=== PATIENT | female | born 1960 | race Caucasian/White ===

== ENCOUNTER → 2018-12-26 | Outpatient (CLI) | payer OTHER, SELFPAY ==
--- NOTE | 2018-12-26 07:14 | BI_ITS ---
We are attempting to reach an attending provider to discuss findings. An addendum with communication details will be sent when the communication is complete. MAMMOGRAPHY - BILATERAL SCREENING REASON FOR EXAM: Female, 58 years old. Routine annual screening examination. PERTINENT HISTORY: Non-contributory. TECHNIQUE: Digital bilateral breast jonah (3D mammographic acquisition) in the CC and MLO projections. 2-D mediolateral oblique (MLO) and craniocaudad (CC) views of both breasts were obtained. CAD: Full Field Digital Mammography with Computer Added Detection was performed. COMPARISON: Comparison is made with prior study dated July 31, 2017 and February 17, 2016. FINDINGS: Breast Composition: There are scattered areas of fibroglandular density. There are no dominant masses or suspicious calcifications. No other significant abnormalities are identified. There has been no significant change since the prior study. BI/SCREENING MAMM (CAD), BILAT IMPRESSION: Stable bilateral screening mammogram. Yearly follow-up mammogram recommended. (A) ASSESSMENT CATEGORY: BIRADS Category 1: Negative. A letter regarding these results will be sent to the patient by the facility within 30 days. Approximately 10% of breast cancers are not detected by mammography. A normal mammogram should not delay biopsy of a clinically suspicious abnormality. [id number] Pending Final Proof Editing
== END | disposition home or self-care (01) ==
PROVIDERS: Referring Provider Family Medicine; Visit Provider Family Medicine
DX: Z12.31 Encounter for screening mammogram for malignant neoplasm of breast (principal)
CPT/HCPCS: 77063; 77067

== ENCOUNTER → 2019-08-28 08:38 | Outpatient (CLI) | payer OTHER, SELFPAY ==
[2019-08-28 10:07] LABS: ALB/GLOB Ratio 0.9 RATIO (0.9-2.4); AST(SGOT) 19 U/L (15-37); Alanine Aminotransfer ALT/SGPT 34 U/L (13-56); Albumin, Serum 3.5 g/dL (3.2-5.0); Alkaline Phosphatase 136 U/L (45-117); Anion Gap 5 (5-15); BUN 13 mg/dL (7-18); BUN/Creat Ratio 15.5 RATIO (10-20); Chloride 107 mmol/L (98-107); Cholesterol 148 mg/dL (200); Creatinine, Serum 0.84 mg/dL (0.55-1.02); EST Glomerular Filtration Rate 74 mL/min (>60); Est Glom Filt Rate - Afr Amer 89 mL/min (>60); Globulin 3.7 g/dL (2.2-4.2); Glucose 89 mg/dL (74-106); High Density Lipoprotein 50 mg/dL; Potassium 3.9 mmol/L (3.5-5.1); Protein, Total 7.2 g/dL (6.4-8.2); Sodium Level 140 mmol/L (136-145); Triglycerides 121 mg/dL; Very Low Density Lipoprotein 24 mg/dL (5-40)
== END ==
PROVIDERS: PCP Family Medicine; Referring Provider Family Medicine; Visit Provider Family Medicine
DX: E78.00 Pure hypercholesterolemia, unspecified (principal)
CPT/HCPCS: 36415; 80053; 80061

== ENCOUNTER → 2020-01-14 17:33 | Outpatient (CLI) | payer OTHER, SELFPAY ==
[2020-01-17 15:54] LABS: HPV Reflexed? NOT INDICATED
== END ==
PROVIDERS: PCP Family Medicine; Visit Provider Nurse Practitioner Adult Health
DX: Z00.00 Encounter for general adult medical examination without abnormal findings (principal)
CPT/HCPCS: 88175; G0145

== ENCOUNTER → 2020-01-28 07:54 | Outpatient (CLI) | payer OTHER, SELFPAY ==
--- NOTE | 2020-01-28 07:57 | BI_ITS ---
MAMMOGRAPHY - BILATERAL SCREENING REASON FOR EXAM: Female, 59 years old. Routine annual screening examination. PERTINENT HISTORY: Non-contributory. TECHNIQUE: Digital bilateral breast corey (3D mammographic acquisition) in the CC and MLO projections. 2-D mediolateral oblique (MLO) and craniocaudad (CC) views of both breasts were obtained. CAD: Full Field Digital Mammography with Computer Added Detection was performed. COMPARISON: Comparison is made with prior study dated December 26, 2018 and July 31, 2017. FINDINGS: Breast Composition: There are scattered areas of fibroglandular density. There are no dominant masses or suspicious calcifications. Stable benign-appearing bilateral axillary lymph nodes. No other significant abnormalities are identified. There has been no significant change since the prior study. BI/SCREEN MAMM (CAD) W/COREY BILAT IMPRESSION: Stable bilateral screening mammogram. Yearly follow-up mammogram recommended. (A) ASSESSMENT CATEGORY: BIRADS Category 2: Benign. A letter regarding these results will be sent to the patient by the facility within 30 days. Approximately 10% of breast cancers are not detected by mammography. A normal mammogram should not delay biopsy of a clinically suspicious abnormality. [id number] Electronically Signed: John Torres, at 8:53 EDT , Service support ,
== END ==
PROVIDERS: PCP Family Medicine; Referring Provider Nurse Practitioner Adult Health; Visit Provider Nurse Practitioner Adult Health
DX: Z12.31 Encounter for screening mammogram for malignant neoplasm of breast (principal)
CPT/HCPCS: 77063; 77067

== ENCOUNTER → 2020-02-09 11:55 | Outpatient (CLI) | payer OTHER, SELFPAY ==
[2020-02-09 16:08] LABS: Anion Gap 5 (5-15); BUN 13 mg/dL (7-18); BUN/Creat Ratio 15.5 RATIO (10-20); Chloride 108 mmol/L (98-107); Creatinine, Serum 0.84 mg/dL (0.55-1.02); EST Glomerular Filtration Rate 74 mL/min (>60); Est Glom Filt Rate - Afr Amer 89 mL/min (>60); Glucose 97 mg/dL (74-106); Potassium 4.3 mmol/L (3.5-5.1); Sodium Level 138 mmol/L (136-145)
== END ==
PROVIDERS: PCP Family Medicine; Visit Provider Family Medicine
DX: I10 Essential (primary) hypertension (principal)
CPT/HCPCS: 36415; 80048

== ENCOUNTER → 2020-09-29 08:44 | Outpatient (CLI) | payer OTHER, SELFPAY ==
[2020-09-29 11:07] LABS: ALB/GLOB Ratio 1.2 RATIO (0.9-2.4); AST(SGOT) 24 U/L (15-37); Alanine Aminotransfer ALT/SGPT 37 U/L (13-56); Albumin, Serum 3.6 g/dL (3.2-5.0); Alkaline Phosphatase 122 U/L (45-117); Anion Gap 6 (5-15); BUN 11 mg/dL (7-18); BUN/Creat Ratio 14.7 RATIO (10-20); CRP, High Sensitivity Cardiac 1.44 mg/L; Calcium,Total 8.9 mg/dL (8.5-10.1); Chloride 109 mmol/L (98-107); Cholesterol 177 mg/dL (200); Creatinine, Serum 0.75 mg/dL (0.55-1.02); EST Glomerular Filtration Rate 84 mL/min (>60); Est Glom Filt Rate - Afr Amer 102 mL/min (>60); Glucose 91 mg/dL (74-106); High Density Lipoprotein 57 mg/dL; Potassium 4.3 mmol/L (3.5-5.1); Protein, Total 6.6 g/dL (6.4-8.2); Sodium Level 142 mmol/L (136-145); Triglycerides 134 mg/dL; Very Low Density Lipoprotein 27 mg/dL (5-40)
== END ==
PROVIDERS: PCP Family Medicine; Referring Provider Family Medicine; Visit Provider Family Medicine
DX: E78.5 Hyperlipidemia, unspecified (principal); Z82.49 Family history of ischemic heart disease and other diseases of the circulatory system
CPT/HCPCS: 36415; 80053; 80061; 86141

== ENCOUNTER → 2021-04-05 07:08 | Outpatient (CLI) | payer OTHER, SELFPAY ==
--- NOTE | 2021-04-05 07:12 | BI_ITS ---
MAMMOGRAPHY - BILATERAL SCREENING REASON FOR EXAM: Female, 60 years old. Routine annual screening examination. PERTINENT HISTORY: Non-contributory. TECHNIQUE: Digital bilateral breast corey (3D mammographic acquisition) in the CC and MLO projections. 2-D mediolateral oblique (MLO) and craniocaudad (CC) views of both breasts were obtained. CAD: Full Field Digital Mammography with Computer Added Detection was performed. COMPARISON: Comparison is made with prior study dated 01/28/2020 and 12/26/2018. FINDINGS: Breast Composition: There are scattered areas of fibroglandular density. There are no dominant masses or suspicious calcifications. Stable small benign-appearing bilateral axillary lymph nodes. No other significant abnormalities are identified. There has been no significant change since the prior study. BI/SCRN MAMM (CAD)W/COREY BILAT IMPRESSION: Stable bilateral screening mammogram. Yearly follow-up mammogram recommended. (A) ASSESSMENT CATEGORY: BIRADS Category 2: Benign. A letter regarding these results will be sent to the patient by the facility within 30 days. Approximately 10% of breast cancers are not detected by mammography. A normal mammogram should not delay biopsy of a clinically suspicious abnormality. [id number] Electronically Signed: John Torres MD at 8:46 EDT , Service support ,
[2021-04-05 08:15] LABS: AST(SGOT) 21 U/L (15-37); Alanine Aminotransfer ALT/SGPT 33 U/L (13-56); Albumin, Serum 3.6 g/dL (3.2-5.0); Alkaline Phosphatase 145 U/L (45-117); Cholesterol 152 mg/dL (200); Globulin 3.6 g/dL (2.2-4.2); High Density Lipoprotein 52 mg/dL; Protein, Total 7.2 g/dL (6.4-8.2); Triglycerides 108 mg/dL; Very Low Density Lipoprotein 22 mg/dL (5-40)
== END ==
PROVIDERS: PCP Family Medicine; Referring Provider Family Medicine; Visit Provider Family Medicine
DX: Z12.31 Encounter for screening mammogram for malignant neoplasm of breast (principal); Z82.49 Family history of ischemic heart disease and other diseases of the circulatory system
CPT/HCPCS: 36415; 77063; 77067; 80061; 80076

== ENCOUNTER → 2021-08-11 14:55 | Outpatient (CLI) | payer OTHER, SELFPAY ==
[2021-08-11 17:41] LABS: Hematocrit 44.2 % (37-47); Hemoglobin 14.3 g/dL (12.0-15.0); Mean Corp Hgb Conc 32.4 g/dL (32-36); Mean Corpuscular Hgb 31.6 pg (27.0-32.0); Mean Corpuscular Volume 97.8 fL (81-99); Platelet Count 210 K/mm3 (150-450); RBC Distribution Width CV 13.9 % (11.6-14.6); RBC Distribution Width SD 50.8 fl (35.1-43.9); Red Blood Count 4.52 M/mm3 (4.2-5.4); White Blood Count 5.2 K/mm3 (4.4-11.0)
[2021-08-11 17:58] LABS: Anion Gap 10 (5-15); BUN 19 mg/dL (7-18); BUN/Creat Ratio 23.4 RATIO (10-20); Calcium,Total 9.1 mg/dL (8.5-10.1); Chloride 104 mmol/L (98-107); Creatinine, Serum 0.81 mg/dL (0.55-1.02); EST Glomerular Filtration Rate 76 mL/min (>60); Est Glom Filt Rate - Afr Amer 93 mL/min (>60); Glucose 89 mg/dL (74-106); Potassium 3.7 mmol/L (3.5-5.1); Sodium Level 140 mmol/L (136-145); Thyroid Stim Hormone (TSH) 1.74 uIU/mL (0.358-3.74)
== END ==
PROVIDERS: PCP Family Medicine; Visit Provider Nurse Practitioner Family
DX: R00.2 Palpitations (principal)
CPT/HCPCS: 36415; 80048; 84443; 85027

== ENCOUNTER → 2021-12-08 | Outpatient (CLI) | payer OTHER, SELFPAY ==
--- NOTE | 2021-12-08 11:07 | RAD_ITS ---
STUDY: X-RAY - LUMBAR SPINE REASON FOR EXAM: Female, 61 years old. BACK PAIN TECHNIQUE: view(s) of the lumbar spine were obtained. COMPARISON: None FINDINGS: Normal lumbar lordosis. There is scoliosis. There is disc degeneration at multiple levels There is a normal alignment of the vertebrae. Normal vertebral bodies and endplates. Normal disc space heights. The soft tissue structures are unremarkable. RAD/L/S Spine Min 4 Views IMPRESSION: There is scoliosis. There is disc degeneration. Electronically Signed: James Santiago MD at 1:04 EDT ,
== END | disposition home or self-care (01) ==
LOC: MTRAD 11:05
PROVIDERS: PCP Family Medicine; Referring Provider Family Medicine; Visit Provider Family Medicine
DX: M54.9 Dorsalgia, unspecified (principal)
CPT/HCPCS: 72110

== ENCOUNTER → 2021-12-10 | Outpatient (CLI) | payer OTHER, SELFPAY ==
[2021-12-10 09:03] LABS: AST(SGOT) 26 U/L (15-37); Alanine Aminotransfer ALT/SGPT 31 U/L (13-56); Albumin, Serum 3.4 g/dL (3.2-5.0); Alkaline Phosphatase 136 U/L (45-117); Anion Gap 3 (5-15); BUN 16 mg/dL (7-18); BUN/Creat Ratio 19.5 RATIO (10-20); Chloride 109 mmol/L (98-107); Cholesterol 154 mg/dL (200); Creatinine, Serum 0.82 mg/dL (0.55-1.02); EST Glomerular Filtration Rate 75 mL/min (>60); Est Glom Filt Rate - Afr Amer 91 mL/min (>60); Globulin 3.5 g/dL (2.2-4.2); Glucose 99 mg/dL (74-106); High Density Lipoprotein 52 mg/dL; Potassium 4.3 mmol/L (3.5-5.1); Protein, Total 6.9 g/dL (6.4-8.2); Sodium Level 139 mmol/L (136-145); Triglycerides 114 mg/dL; Very Low Density Lipoprotein 23 mg/dL (5-40)
== END | disposition home or self-care (01) ==
LOC: LAB 08:12
PROVIDERS: PCP Family Medicine; Visit Provider Family Medicine
DX: E78.5 Hyperlipidemia, unspecified (principal)
CPT/HCPCS: 36415; 80053; 80061

== ENCOUNTER → 2022-01-30 | Outpatient (CLI) | payer OTHER, SELFPAY ==
--- NOTE | 2022-01-30 07:17 | CT_ITS ---
INDICATION: R PRIMARY NODULE EXAMINATION: CT CHEST WITHOUT CONTRAST - CT Chest W/O Contrast Injection TECHNIQUE: Helically acquired images were obtained of the chest. A radiation dose optimization technique was used for this scan. IV Contrast dosage and agent: None. COMPARISON: None. FINDINGS: LUNGS, PLEURA AND LARGE AIRWAYS: No masses, consolidation, or edema. No pleural effusion or thickening. No pneumothorax. THYROID: No thyroid lesions. HEART AND PERICARDIUM: Heart size is normal. No pericardial effusion. CORONARY ARTERIES: Coronary artery calcification is seen. VESSELS: Thoracic aorta is not dilated. MEDIASTINUM AND PEBBLES: No mediastinal or hilar adenopathy. Esophagus is unremarkable. No hiatal hernia. UPPER ABDOMEN: No acute pathology. BONES: No suspicious lytic or blastic abnormality. CT/Chest without Contrast IMPRESSION: Negative CT chest without contrast. Electronically Signed: Vijay Jimenez MD at 8:51 EDT ,
== END | disposition home or self-care (01) ==
LOC: CT 07:16
PROVIDERS: PCP Family Medicine; Referring Provider Family Medicine; Visit Provider Family Medicine
DX: R91.1 Solitary pulmonary nodule (principal)
CPT/HCPCS: 71250

== ENCOUNTER → 2022-05-20 | Outpatient (CLI) | payer OTHER, SELFPAY ==
[2022-05-20 09:24] LABS: Anion Gap 3 (5-15); BUN 17 mg/dL (7-18); BUN/Creat Ratio 21.6 RATIO (10-20); Calcium,Total 8.9 mg/dL (8.5-10.1); Chloride 109 mmol/L (98-107); Cholesterol 161 mg/dL (200); Creatinine, Serum 0.79 mg/dL (0.55-1.02); EST Glomerular Filtration Rate 79 mL/min (>60); Est Glom Filt Rate - Afr Amer 96 mL/min (>60); Glucose 101 mg/dL (74-106); High Density Lipoprotein 49 mg/dL; Potassium 4.4 mmol/L (3.5-5.1); Sodium Level 141 mmol/L (136-145); Thyroid Stim Hormone (TSH) 2.63 uIU/mL (0.358-3.74); Triglycerides 136 mg/dL; Very Low Density Lipoprotein 27 mg/dL (5-40)
== END | disposition home or self-care (01) ==
LOC: LAB 08:14
PROVIDERS: PCP Family Medicine; Referring Provider Family Medicine; Visit Provider Family Medicine
DX: I10 Essential (primary) hypertension (principal); E78.00 Pure hypercholesterolemia, unspecified
CPT/HCPCS: 36415; 80048; 80061; 84443

== ENCOUNTER → 2022-05-22 | Outpatient (CLI) | payer OTHER, SELFPAY ==
--- NOTE | 2022-05-22 10:40 | BI_ITS ---
MAMMOGRAPHY - BILATERAL SCREENING REASON FOR EXAM: Female, 61 years old. Routine annual screening examination. PERTINENT HISTORY: Non-contributory. TECHNIQUE: Digital bilateral breast corey (3D mammographic acquisition) in the CC and MLO projections. 2-D mediolateral oblique (MLO) and craniocaudad (CC) views of both breasts were obtained. CAD: Full Field Digital Mammography with Computer Added Detection was performed. COMPARISON: Comparison is made with prior examination 04/05/2021 and 01/28/2020. FINDINGS: Breast Composition: There are scattered areas of fibroglandular density. There are no dominant masses or suspicious calcifications. Stable small benign-appearing bilateral axillary lymph nodes. No other significant abnormalities are identified. There has been no significant change since the prior study. BI/SCRN MAMM (CAD)W/COREY BILAT IMPRESSION: Stable bilateral screening mammogram. Yearly follow-up mammogram recommended. (A) ASSESSMENT CATEGORY: BIRADS Category 2: Benign. A letter regarding these results will be sent to the patient by the facility within 30 days. Approximately 10% of breast cancers are not detected by mammography. A normal mammogram should not delay biopsy of a clinically suspicious abnormality. [id number] Electronically Signed: John Torres MD at 12:34 EDT ,
== END | disposition home or self-care (01) ==
LOC: OPBI 10:37
PROVIDERS: PCP Family Medicine; Visit Provider Family Medicine
DX: Z12.31 Encounter for screening mammogram for malignant neoplasm of breast (principal)
CPT/HCPCS: 77063; 77067

== ENCOUNTER → 2023-01-06 | Outpatient (CLI) | payer OTHER, SELFPAY ==
[2023-01-06 08:52] LABS: ALB/GLOB Ratio 0.9 RATIO (0.9-2.4); AST(SGOT) 19 U/L (15-37); Alanine Aminotransfer ALT/SGPT 24 U/L (13-56); Albumin, Serum 3.3 g/dL (3.2-5.0); Alkaline Phosphatase 130 U/L (45-117); Anion Gap 2 (5-15); BUN 15 mg/dL (7-18); BUN/Creat Ratio 16.9 RATIO (10-20); Calcium,Total 9.2 mg/dL (8.5-10.1); Chloride 109 mmol/L (98-107); Cholesterol 149 mg/dL (200); Creatinine, Serum 0.88 mg/dL (0.55-1.02); EST Glomerular Filtration Rate 69 mL/min (>60); Est Glom Filt Rate - Afr Amer 83 mL/min (>60); Globulin 3.5 g/dL (2.2-4.2); Glucose 104 mg/dL (74-106); High Density Lipoprotein 50 mg/dL; Potassium 4.5 mmol/L (3.5-5.1); Protein, Total 6.8 g/dL (6.4-8.2); Sodium Level 141 mmol/L (136-145); Triglycerides 131 mg/dL; Very Low Density Lipoprotein 26 mg/dL (5-40)
== END | disposition home or self-care (01) ==
LOC: LAB 07:41
PROVIDERS: PCP Family Medicine; Referring Provider Family Medicine; Visit Provider Family Medicine
DX: E78.00 Pure hypercholesterolemia, unspecified (principal)
CPT/HCPCS: 36415; 80053; 80061

== ENCOUNTER → 2023-10-01 | Outpatient (CLI) | payer OTHER, SELFPAY ==
--- NOTE | 2023-10-01 07:57 | BI_ITS ---
MAMMOGRAPHY - BILATERAL SCREENING REASON FOR EXAM: Female, 63 years old. Routine annual screening examination. PERTINENT HISTORY: Non-contributory. TECHNIQUE: Digital bilateral breast corey (3D mammographic acquisition) in the CC and MLO projections. 2-D mediolateral oblique (MLO) and craniocaudad (CC) views of both breasts were obtained. CAD: Full Field Digital Mammography with Computer Added Detection was performed. COMPARISON: Comparison is made with prior study dated January 28, 2020 and April 05, 2021. FINDINGS: Breast Composition: There are scattered areas of fibroglandular density. There are no dominant masses or suspicious calcifications. Stable small benign appearing bilateral axillary nodes. No other significant abnormalities are identified. There has been no significant change since the prior study. BI/SCRN MAMM (CAD)W/COREY BILAT IMPRESSION: Stable bilateral screening mammogram. Yearly follow-up mammogram recommended. (A) ASSESSMENT CATEGORY: BIRADS Category 2: Benign. A letter regarding these results will be sent to the patient by the facility within 30 days. Approximately 10% of breast cancers are not detected by mammography. A normal mammogram should not delay biopsy of a clinically suspicious abnormality. [id number] Electronically Signed: John Torres MD at 8:40 EST ,
--- OUTSIDE RECORDS SUMMARY | 2023-10-01 08:14 | XMS RPT_ITS | CCD ---
Author Name Unknown Address [id number] [place] [address] Organization [facility] Care Team Providers Care Specimen Transporter Name Role Phone MCKENNA FU, DR SMITH Primary Care Physician ANA FU., DR. DESAI [facility] CMKENNA FU., DR. SMITH Primary Care Unav ailable Medications Current Medications Medication Drug Class(es) Dates Sig (Normalized) Sig (Original) lisinopril 10 mg oral tablet (1 source) Angiotensin Converting Enzyme Inhibitor Start: 03-03-2022 lisinopril 10 mg oral tablet Dose : 10 mg = 1 tab(s), Oral, qDay, 0 Refill(s) Start Date: 03/03/22 Status: Ordered Results Test Name Value Interpretation Reference Range Facil ity Vital Signs Date Time Vital Sign Value Performing Clinician [facility] 03-06-2022 10:49-0400 Body temperature 97.7 [degF] DR GISELLE PEREZ MD [facility] 03-06-2022 10:49-0400 Diastolic blood pressure 78 mm[Hg] DR GISELLE PEREZ MD [facility] 03-06-2022 10:49-0400 Heart rate 92 /min DR GISELLE PEREZ MD [facility] 03-06-2022 10:49-0400 Respiratory rate 17 /min DR GISELLE PEREZ MD [facility] 03-06-2022 10:49-0400 Systolic blood pressure 148 mm[Hg] DR GISELLE PEREZ MD [facility] 03-06-2022 10:45-0400 Diastolic Blood Pressure NBP [address] GISELLE PEREZ MD [facility] 03-06-2022 10:45-0400 Heart rate 91 /min DR GISELLE PEREZ MD [facility] 03-06-2022 10:45-0400 Respiratory rate 21 /min DR GISELLE PEREZ MD [facility] 03-06-2022 10:45-0400 Systolic Blood Pressure NBP [address] GISELLE PEREZ MD [facility] 03-06-2022 10:34-0400 Diastolic Blood Pressure NBP [address] GISELLE PEREZ MD [facility] 03-06-2022 10:34-0400 Heart rate 94 /min DR GISELLE PEREZ MD [facility] 03-06-2022 10:34-0400 Respiratory rate 18 /min DR GISELLE PEREZ MD [facility] 03-06-2022 10:34-0400 Systolic Blood Pressure NBP [address] GISELLE PEREZ MD [facility] 03-06-2022 10:30-0400 Heart rate 91 /min DR GISELLE PEREZ MD [facility] 03-06-2022 10:26-0400 Diastolic Blood Pressure NBP [address] GISELLE PEREZ MD [facility] 03-06-2022 10:26-0400 Systolic Blood Pressure NBP [address] GISELLE PEREZ MD [facility] 03-06-2022 10:15-0400 Body height [address] GISELLE PEREZ MD [facility] 03-06-2022 09:51-0400 Body height [address] GISELLE PEREZ MD [facility] 03-06-2022 09:51-0400 Body temperature 96.08 [degF] DR GISELLE PEREZ MD [facility] 03-06-2022 09:51-0400 Body weight 96.[address] GISELLE PEREZ MD [facility] 03-06-2022 09:51-0400 Diastolic blood pressure 77 mm[Hg] DR GISELLE PEREZ MD [facility] 03-06-2022 09:51-0400 Heart rate 96 /min DR GISELLE PEREZ MD [facility] 03-06-2022 09:51-0400 Systolic blood pressure 151 mm[Hg] DR GISELLE PEREZ MD [facility] Encounters Encounter Date Encounter Type Care Provider Facility Start: 03-06-2022 End: 03-06-[address] GISELLE PEREZ MD. Facility:[facility] Start: 03-06-2022 End: 03-06-[address] GISELLE PEREZ MD [facility] Procedures Date Procedure Procedure Detail Performing Clinician Start: 03-06-[address] GISELLE PEREZ MD Payers Date Payer Category Payer Unknown [id number] 2022 Unknown [id number] 1960 Unknown [id number] Social History Date Type Detail Facility Tobacco smoking status No Smoking Status Entered [facility] Sex Assigned At Female [facility] Functional Status Date Assessment Result Facility 03-06-2022 Functional Status Activity Statu s ADL Up to bathroom [facility] 03-06-2022 Functional Status Maintained [facility] Mental Status Date Assessment Result Facility 03-06-2022 Mental Status Oriented x 4 [facility] Evaluation + Plan note 03-06-2022 Note Date & Type Note Facility [facility] ADMISSION HISTORY AN D PHYSICIAL CHIEF COMPLAINT: HISTORY OF PRESENT ILLNESS: REVIEW OF SYSTEMS: ACTIVE PROBLEMS: (1) HTN (hypertension) ([id number]) MEDICATIONS: Active Inpt Meds: None Active PRN Meds: None One Time Meds: None Active IV Meds: Lactated Ringers Infusion 1,000 mL Start: 03/06/22 9:46:00 EDT, Rate: 50 mL/hr, 03/06/22 9:46:00 EDT ALLERGIES: (1) NKA FAMILY HISTORY: SOCIAL HISTORY: PHYSICAL EXAM: VITALS: [id number](kg) 03/06 10:05--107/59--------03/06 96.9 03/06 09:[id number] 24 Hr Tmax: 35.6 at 03/06 09:51 36 Hr Tmax: 35.6 at 03/06 09:51 Vital Signs are the last 5 in the past 48 hours. Weights display the last 5 within 7 days. Initial Wt: 03/06 96.9 kg 213 lb Current Wt: 03/06 96.9 kg 213 lb GENERAL: HEENT: CARDIOVASCULAR: RESPIRATORY: ABDOMEN: EXREMETIES: NEUROLOGICAL: PSYCHIATRIC: LABS: No 36hr Lab Data DIAGNOSTICS: IMPRESSION: PLAN: History and Physical Update I have examined the patient; reviewed the H&P and there are no changes to the H&P unless noted below. [facility] Hospital Discharge instructions 03-06-2022 Note Date & Type Note Facility 03-06-2022 Hospital Discharg e instructions Patient Education 03/06/2022 11:08:49 Diverticulosis Diverticulosis Diverticulosis is a condition that develops when small pouches (diverticula) form in the wall of the large intestine (colon). The colon is where water is absorbed and stool is formed. The pouches form when the inside layer of the colon pushes through weak spots in the outer layers of the colon. You may have a few pouches or many of them. What are the causes? The cause of this condition is not known. What increases the risk? The following factors may make you more likely to develop this condition: Being older than age 60. Your risk for this condition increases with age. Diverticulosis is rare among people younger than age 30. By age 80, many people have it. Eating a low-fiber diet. Having frequent constipation. Being overweight. Not getting enough exercise. Smoking. Taking ekpt-jpp-njmwplo pain medicines, like aspirin and ibuprofen. Having a family history of diverticulosis. What are the signs or symptoms? In most people, there are no symptoms of this condition. If you do have symptoms, they may include: Bloating. Cramps in the abdomen. Constipation or diarrhea. Pain in the lower left side of the abdomen. How is this diagnosed? This condition is most often diagnosed during an exam for other colon problems. Because diverticulosis usually has no symptoms, it often cannot be diagnosed independently. This condition may be diagnosed by: Using a flexible scope to examine the colon (colonoscopy). Taking an X-ray of the colon after dye has been put into the colon (barium enema). Doing a CT scan. How is this treated? You may not need treatment for this condition if you have never developed an infection related to diverticulosis. If you have had an infection before, treatment may include: Eating a high-fiber diet. This may include eating more fruits, vegetables, and grains. Taking a fiber supplement. Taking a live bacteria supplement (probiotic). Taking medicine to relax your colon. Taking antibiotic medicines. Follow these instructions at home: Drink 6 8 glasses of water or more each day to prevent constipation. Try not to strain when you have a bowel movement. If you have had an infection before: ?Eat more fiber as directed by your health care provider or your diet and online merchandising specialist (dietitian). ?Take a fiber supplement or probiotic, if your health care provider approves. Take qmrj-gft-pzjgxjw and prescription medicines only as told by your health care provider. If you were prescribed an antibiotic, take it as told by your health care provider. Do not stop taking the antibiotic even if you start to feel better. Keep all follow-up visits as told by your health care provider. This is important. Contact a health care provider if: You have pain in your abdomen. You have bloating. You have cramps. You have not had a bowel movement in 3 days. Get help right away if: Your pain gets worse. Your bloating becomes very bad. You have a fever or chills, and your symptoms suddenly get worse. You vomit. You have bowel movements that are bloody or black. You have bleeding from your rectum. Summary Diverticulosis is a condition that develops when small pouches (diverticula) form in the wall of the large intestine (colon). You may have a few pouches or many of them. This condition is most often diagnosed during an exam for other colon problems. If you have had an infection related to diverticulosis, treatment may include increasing the fiber in your diet, taking supplements, or taking medicines. This information is not intended to replace advice given to you by your health care provider. Make sure you discuss any questions you have with your health care provider. Document Released: 04/26/2005 Document Revised: 07/12/2018 Document Reviewed: 06/18/2017 [employer] Patient Education 2020 [employer]. 03/06/2022 11:08:30 Monitored Anesthesia Care, Care After Monitored Anesthesia Care, Care After These instructions provide you with information about caring for yourself after your procedure. Your health care provider may also give you more specific instructions. Your treatment has been planned according to current medical practices, but problems sometimes occur. Call your health care provider if you have any problems or questions after your procedure. What can I expect after the procedure? After your procedure, you may: Feel sleepy for several hours. Feel clumsy and have poor balance for several hours. Feel forgetful about what happened after the procedure. Have poor judgment for several hours. Feel nauseous or vomit. Have a sore throat if you had a breathing tube during the procedure. Follow these instructions at home: For at least 24 hours after the procedure: Have a responsible adult stay with you. It is important to have someone help care for you until you are awake and alert. Rest as needed. Do not: ?Participate in activities in which you could fall or become injured. ?Drive. ?Use heavy machinery. ?Drink alcohol. ?Take sleeping pills or medicines that cause drowsiness. ?Make important decisions or sign legal documents. ?Take care of children on your own. Eating and drinking Follow the diet that is recommended by your health care provider. If you vomit, drink water, juice, or soup when you can drink without vomiting. Make sure you have little or no nausea before eating solid foods. General instructions Take gznb-seo-bqddfem and prescription medicines only as told by your health care provider. If you have sleep apnea, surgery and certain medicines can increase your risk for breathing problems. Follow instructions from your health care provider about wearing your sleep device: ?Anytime you are sleeping, including during daytime naps. ?While taking prescription pain medicines, sleeping medicines, or medicines that make you drowsy. If you smoke, do not smoke without supervision. Keep all follow-up visits as told by your health care provider. This is important. Contact a health care provider if: You keep feeling nauseous or you keep vomiting. You feel light-headed. You develop a rash. You have a fever. Get help right away if: You have trouble breathing. Summary For several hours after your procedure, you may feel sleepy and have poor judgment. Have a responsible adult stay with you for at least 24 hours or until you are awake and alert. This information is not intended to replace advice given to you by your health care provider. Make sure you discuss any questions you have with your health care provider. Document Released: 11/19/2016 Document Revised: 10/28/2018 Document Reviewed: 11/19/2016 [employer] Patient Education 2020 [employer]. 03/06/2022 11:08:13 Colonoscopy, Adult, Care After Colonoscopy, Adult, Care After This sheet gives you information about how to care for yourself after your procedure. Your health care provider may also give you more specific instructions. If you have problems or questions, contact your health care provider. What can I expect after the procedure? After the procedure, it is common to have: A small amount of blood in your stool for 24 hours after the procedure. Some gas. Mild abdominal cramping or bloating. Follow these instructions at home: General instructions For the first 24 hours after the procedure: ?Do not drive or use machinery. ?Do not sign important documents. ?Do not drink alcohol. ?Do your regular daily activities at a slower pace than normal. ?Eat soft, jics-kv-upslcm foods. Take ynsk-fsv-fdhmqem or prescription medicines only as told by your health care provider. Relieving cramping and bloating Try walking around when you have cramps or feel bloated. Apply heat to your abdomen as told by your health care provider. Use a heat source that your health care provider recommends, such as a moist heat pack or a heating pad. ?Place a towel between your skin and the heat source. ?Leave the heat on for 20 30 minutes. ?Remove the heat if your skin turns bright red. This is especially important if you are unable to feel pain, heat, or cold. You may have a greater risk of getting burned. Eating and drinking Drink enough fluid to keep your urine pale yellow. Resume your normal diet as instructed by your health care provider. Avoid heavy or fried foods that are hard to digest. Avoid drinking alcohol for as long as instructed by your health care provider. Contact a health care provider if: You have blood in your stool 2 3 days after the procedure. Get help right away if: You have more than a small spotting of blood in your stool. You pass large blood clots in your stool. Your abdomen is swollen. You have nausea or vomiting. You have a fever. You have increasing abdominal pain that is not relieved with medicine. Summary After the procedure, it is common to have a small amount of blood in your stool. You may also have mild abdominal cramping and bloating. For the first 24 hours after the procedure, do not drive or use machinery, sign important documents, or drink alcohol. Contact your health care provider if you have a lot of blood in your stool, nausea or vomiting, a fever, or increased abdominal pain. This information is not intended to replace advice given to you by your health care provider. Make sure you discuss any questions you have with your health care provider. Document Released: 03/13/2005 Document Revised: 05/22/2018 Document Reviewed: 10/10/2016 [employer]Current Patient Education 2020 [employer]. 03/06/2022 10:54:22 Monitored Anesthesia Care, Care After Monitored Anesthesia Care, Care After These instructions provide you with information about caring for yourself after your procedure. Your health care provider may also give you more specific instructions. Your treatment has been planned according to current medical practices, but problems sometimes occur. Call your health care provider if you have any problems or questions after your procedure. What can I expect after the procedure? After your procedure, you may: Feel sleepy for several hours. Feel clumsy and have poor balance for several hours. Feel forgetful about what happened after the procedure. Have poor judgment for several hours. Feel nauseous or vomit. Have a sore throat if you had a breathing tube during the procedure. Follow these instructions at home: For at least 24 hours after the procedure: Have a responsible adult stay with you. It is important to have someone help care for you until you are awake and alert. Rest as needed. Do not: ?Participate in activities in which you could fall or become injured. ?Drive. ?Use heavy machinery. ?Drink alcohol. ?Take sleeping pills or medicines that cause drowsiness. ?Make important decisions or sign legal documents. ?Take care of children on your own. Eating and drinking Follow the diet that is recommended by your health care provider. If you vomit, drink water, juice, or soup when you can drink without vomiting. Make sure you have little or no nausea before eating solid foods. General instructions Take banc-cyn-prytrlt and prescription medicines only as told by your health care provider. If you have sleep apnea, surgery and certain medicines can increase your risk for breathing problems. Follow instructions from your health care provider about wearing your sleep device: ?Anytime you are sleeping, including during daytime naps. ?While taking prescription pain medicines, sleeping medicines, or medicines that make you drowsy. If you smoke, do not smoke without supervision. Keep all follow-up visits as told by your health care provider. This is important. Contact a health care provider if: You keep feeling nauseous or you keep vomiting. You feel light-headed. You develop a rash. You have a fever. Get help right away if: You have trouble breathing. Summary For several hours after your procedure, you may feel sleepy and have poor judgment. Have a responsible adult stay with you for at least 24 hours or until you are awake and alert. This information is not intended to replace advice given to you by your health care provider. Make sure you discuss any questions you have with your health care provider. Document Released: 11/19/2016 Document Revised: 10/28/2018 Document Reviewed: 11/19/2016 CrossCurrent Patient Education 2020 [employer]. 03/06/2022 10:54:11 Colonoscopy, Adult, Care After Colonoscopy, Adult, Care After This sheet gives you information about how to care for yourself after your procedure. Your health care provider may also give you more specific instructions. If you have problems or questions, contact your health care provider. What can I expect after the procedure? After the procedure, it is common to have: A small amount of blood in your stool for 24 hours after the procedure. Some gas. Mild abdominal cramping or bloating. Follow these instructions at home: General instructions For the first 24 hours after the procedure: ?Do not drive or use machinery. ?Do not sign important documents. ?Do not drink alcohol. ?Do your regular daily activities at a slower pace than normal. ?Eat soft, zqsv-ey-oprlqq foods. Take lhyb-zbm-kxowfcl or prescription medicines only as told by your health care provider. Relieving cramping and bloating Try walking around when you have cramps or feel bloated. Apply heat to your abdomen as told by your health care provider. Use a heat source that your health care provider recommends, such as a moist heat pack or a heating pad. ?Place a towel between your skin and the heat source. ?Leave the heat on for 20 30 minutes. ?Remove the heat if your skin turns bright red. This is especially important if you are unable to feel pain, heat, or cold. You may have a greater risk of getting burned. Eating and drinking Drink enough fluid to keep your urine pale yellow. Resume your normal diet as instructed by your health care provider. Avoid heavy or fried foods that are hard to digest. Avoid drinking alcohol for as long as instructed by your health care provider. Contact a health care provider if: You have blood in your stool 2 3 days after the procedure. Get help right away if: You have more than a small spotting of blood in your stool. You pass large blood clots in your stool. Your abdomen is swollen. You have nausea or vomiting. You have a fever. You have increasing abdominal pain that is not relieved with medicine. Summary After the procedure, it is common to have a small amount of blood in your stool. You may also have mild abdominal cramping and bloating. For the first 24 hours after the procedure, do not drive or use machinery, sign important documents, or drink alcohol. Contact your health care provider if you have a lot of blood in your stool, nausea or vomiting, a fever, or increased abdominal pain. This information is not intended to replace advice given to you by your health care provider. Make sure you discuss any questions you have with your health care provider. Document Released: 03/13/2005 Document Revised: 05/22/2018 Document Reviewed: 10/10/2016 CrossCurrent Patient Education 2020 [employer]. Follow Up Care 02/02/2022 11:14:58 With:GISELLE PEREZ Address: [address] [place] [phone]- [phone] Business (1) When: only if needed Comments:You will need another colonoscopy in 10 years [facility] Summary of episode note 03-06-2022 Note Date & Type Note Facility 03-06-2022 Summary of episode note Discharge Instructions Thank you for allowing [facility] to assist you with your healthcare needs. The following is important discharge information regarding your hospital visit. Your Care Team LUIS ANDRES MD What to do next Follow Up Appointments Follow Up with GISELLE PEREZ When Only if needed Why: You will need another colonoscopy in 10 years Where: [address] [id number] [phone] [employer] (1) The Following Activity and Diet Have Been Ordered for You No qualifying data available. No qualifying data available. The Following Equipment Has Been Ordered for You No qualifying data available. The Following Treatments Have Been Ordered for You Discharge Labs No qualifying data available. Discharge Radiology No qualifying data available. Other Therapies No qualifying data available. Post Acute Orders No qualifying data available. Someone Will Contact You Regarding These Home Health Referrals No home referrals have been ordered for you. No one will call you. Allergies NKA Medications Please ask your primary doctor or pharmacist before taking any other medication not listed, including over the counter drugs, herbal medications, vitamins and or supplements as they may interact with your home medications. What How Much When Instructions Last Dose Unchanged lisinopril (lisinopril 10 mg oral tablet) 1 tab(s) by mouth Once a day Please take this list to your next doctor s visit. Bring all medications you take, including over the counter medications, herbals and other supplements with you to your doctor s visit. Patients and families are reminded to discard old lists and to update any records with all medication providers or retail pharmacies. Education Materials Diverticulosis Diverticulosis is a condition that develops when small pouches (diverticula) form in the wall of the large intestine (colon). The colon is where water is absorbed and stool is formed. The pouches form when the inside layer of the colon pushes through weak spots in the outer layers of the colon. You may have a few pouches or many of them. What are the causes? The cause of this condition is not known. What increases the risk? The following factors may make you more likely to develop this condition: Being older than age 60. Your risk for this condition increases with age. Diverticulosis is rare among people younger than age 30. By age 80, many people have it. Eating a low-fiber diet. Having frequent constipation. Being overweight. Not getting enough exercise. Smoking. Taking jmiv-vwv-nmbyyiv pain medicines, like aspirin and ibuprofen. Having a family history of diverticulosis. What are the signs or symptoms? In most people, there are no symptoms of this condition. If you do have symptoms, they may include: Bloating. Cramps in the abdomen. Constipation or diarrhea. Pain in the lower left side of the abdomen. How is this diagnosed? This condition is most often diagnosed during an exam for other colon problems. Because diverticulosis usually has no symptoms, it often cannot be diagnosed independently. This condition may be diagnosed by: Using a flexible scope to examine the colon (colonoscopy). Taking an X-ray of the colon after dye has been put into the colon (barium enema). Doing a CT scan. How is this treated? You may not need treatment for this condition if you have never developed an infection related to diverticulosis. If you have had an infection before, treatment may include: Eating a high-fiber diet. This may include eating more fruits, vegetables, and grains. Taking a fiber supplement. Taking a live bacteria supplement (probiotic). Taking medicine to relax your colon. Taking antibiotic medicines. Follow these instructions at home: Drink 6 8 glasses of water or more each day to prevent constipation. Try not to strain when you have a bowel movement. If you have had an infection before: ? Eat more fiber as directed by your health care provider or your diet and online merchandising specialist (dietitian). ? Take a fiber supplement or probiotic, if your health care provider approves. Take fmrg-jsu-gsfdjom and prescription medicines only as told by your health care provider. If you were prescribed an antibiotic, take it as told by your health care provider. Do not stop taking the antibiotic even if you start to feel better. Keep all follow-up visits as told by your health care provider. This is important. Contact a health care provider if: You have pain in your abdomen. You have bloating. You have cramps. You have not had a bowel movement in 3 days. Get help right away if: Your pain gets worse. Your bloating becomes very bad. You have a fever or chills, and your symptoms suddenly get worse. You vomit. You have bowel movements that are bloody or black. You have bleeding from your rectum. Summary Diverticulosis is a condition that develops when small pouches (diverticula) form in the wall of the large intestine (colon). You may have a few pouches or many of them. This condition is most often diagnosed during an exam for other colon problems. If you have had an infection related to diverticulosis, treatment may include increasing the fiber in your diet, taking supplements, or taking medicines. This information is not intended to replace advice given to you by your health care provider. Make sure you discuss any questions you have with your health care provider. Document Released: 04/26/2005 Document Revised: 07/12/2018 Document Reviewed: 06/18/2017 [employer] Patient Education 2020 [employer] Monitored Anesthesia Care, Care After These instructions provide you with information about caring for yourself after your procedure. Your health care provider may also give you more specific instructions. Your treatment has been planned according to current medical practices, but problems sometimes occur. Call your health care provider if you have any problems or questions after your procedure. What can I expect after the procedure? After your procedure, you may: Feel sleepy for several hours. Feel clumsy and have poor balance for several hours. Feel forgetful about what happened after the procedure. Have poor judgment for several hours. Feel nauseous or vomit. Have a sore throat if you had a breathing tube during the procedure. Follow these instructions at home: For at least 24 hours after the procedure: Have a responsible adult stay with you. It is important to have someone help care for you until you are awake and alert. Rest as needed. Do not: ? Participate in activities in which you could fall or become injured. ? Drive. ? Use heavy machinery. ? Drink alcohol. ? Take sleeping pills or medicines that cause drowsiness. ? Make important decisions or sign legal documents. ? Take care of children on your own. Eating and drinking Follow the diet that is recommended by your health care provider. If you vomit, drink water, juice, or soup when you can drink without vomiting. Make sure you have little or no nausea before eating solid foods. General instructions Take ovcz-vrd-jihgurs and prescription medicines only as told by your health care provider. If you have sleep apnea, surgery and certain medicines can increase your risk for breathing problems. Follow instructions from your health care provider about wearing your sleep device: ? Anytime you are sleeping, including during daytime naps. ? While taking prescription pain medicines, sleeping medicines, or medicines that make you drowsy. If you smoke, do not smoke without supervision. Keep all follow-up visits as told by your health care provider. This is important. Contact a health care provider if: You keep feeling nauseous or you keep vomiting. You feel light-headed. You develop a rash. You have a fever. Get help right away if: You have trouble breathing. Summary For several hours after your procedure, you may feel sleepy and have poor judgment. Have a responsible adult stay with you for at least 24 hours or until you are awake and alert. This information is not intended to replace advice given to you by your health care provider. Make sure you discuss any questions you have with your health care provider. Document Released: 11/19/2016 Document Revised: 10/28/2018 Document Reviewed: 11/19/2016 [employer] Patient Education 2020 [employer]. Colonoscopy, Adult, Care After This sheet gives you information about how to care for yourself after your procedure. Your health care provider may also give you more specific instructions. If you have problems or questions, contact your health care provider. What can I expect after the procedure? After the procedure, it is common to have: A small amount of blood in your stool for 24 hours after the procedure. Some gas. Mild abdominal cramping or bloating. Follow these instructions at home: General instructions For the first 24 hours after the procedure: ? Do not drive or use machinery. ? Do not sign important documents. ? Do not drink alcohol. ? Do your regular daily activities at a slower pace than normal. ? Eat soft, okzn-lm-vhtchb foods. Take qlbv-jwl-aqvavys or prescription medicines only as told by your health care provider. Relieving cramping and bloating Try walking around when you have cramps or feel bloated. Apply heat to your abdomen as told by your health care provider. Use a heat source that your health care provider recommends, such as a moist heat pack or a heating pad. ? Place a towel between your skin and the heat source. ? Leave the heat on for 20 30 minutes. ? Remove the heat if your skin turns bright red. This is especially important if you are unable to feel pain, heat, or cold. You may have a greater risk of getting burned. Eating and drinking Drink enough fluid to keep your urine pale yellow. Resume your normal diet as instructed by your health care provider. Avoid heavy or fried foods that are hard to digest. Avoid drinking alcohol for as long as instructed by your health care provider. Contact a health care provider if: You have blood in your stool 2 3 days after the procedure. Get help right away if: You have more than a small spotting of blood in your stool. You pass large blood clots in your stool. Your abdomen is swollen. You have nausea or vomiting. You have a fever. You have increasing abdominal pain that is not relieved with medicine. Summary After the procedure, it is common to have a small amount of blood in your stool. You may also have mild abdominal cramping and bloating. For the first 24 hours after the procedure, do not drive or use machinery, sign important documents, or drink alcohol. Contact your health care provider if you have a lot of blood in your stool, nausea or vomiting, a fever, or increased abdominal pain. This information is not intended to replace advice given to you by your health care provider. Make sure you discuss any questions you have with your health care provider. Document Released: 03/13/2005 Document Revised: 05/22/2018 Document Reviewed: 10/10/2016 [employer] Patient Education 2020 [employer] Monitored Anesthesia Care, Care After These instructions provide you with information about caring for yourself after your procedure. Your health care provider may also give you more specific instructions. Your treatment has been planned according to current medical practices, but problems sometimes occur. Call your health care provider if you have any problems or questions after your procedure. What can I expect after the procedure? After your procedure, you may: Feel sleepy for several hours. Feel clumsy and have poor balance for several hours. Feel forgetful about what happened after the procedure. Have poor judgment for several hours. Feel nauseous or vomit. Have a sore throat if you had a breathing tube during the procedure. Follow these instructions at home: For at least 24 hours after the procedure: Have a responsible adult stay with you. It is important to have someone help care for you until you are awake and alert. Rest as needed. Do not: ? Participate in activities in which you could fall or become injured. ? Drive. ? Use heavy machinery. ? Drink alcohol. ? Take sleeping pills or medicines that cause drowsiness. ? Make important decisions or sign legal documents. ? Take care of children on your own. Eating and drinking Follow the diet that is recommended by your health care provider. If you vomit, drink water, juice, or soup when you can drink without vomiting. Make sure you have little or no nausea before eating solid foods. General instructions Take udax-tcm-ltbpdop and prescription medicines only as told by your health care provider. If you have sleep apnea, surgery and certain medicines can increase your risk for breathing problems. Follow instructions from your health care provider about wearing your sleep device: ? Anytime you are sleeping, including during daytime naps. ? While taking prescription pain medicines, sleeping medicines, or medicines that make you drowsy. If you smoke, do not smoke without supervision. Keep all follow-up visits as told by your health care provider. This is important. Contact a health care provider if: You keep feeling nauseous or you keep vomiting. You feel light-headed. You develop a rash. You have a fever. Get help right away if: You have trouble breathing. Summary For several hours after your procedure, you may feel sleepy and have poor judgment. Have a responsible adult stay with you for at least 24 hours or until you are awake and alert. This information is not intended to replace advice given to you by your health care provider. Make sure you discuss any questions you have with your health care provider. Document Released: 11/19/2016 Document Revised: 10/28/2018 Document Reviewed: 11/19/2016 [employer] Patient Education 2020 [employer]. Colonoscopy, Adult, Care After This sheet gives you information about how to care for yourself after your procedure. Your health care provider may also give you more specific instructions. If you have problems or questions, contact your health care provider. What can I expect after the procedure? After the procedure, it is common to have: A small amount of blood in your stool for 24 hours after the procedure. Some gas. Mild abdominal cramping or bloating. Follow these instructions at home: General instructions For the first 24 hours after the procedure: ? Do not drive or use machinery. ? Do not sign important documents. ? Do not drink alcohol. ? Do your regular daily activities at a slower pace than normal. ? Eat soft, sikz-gl-uwjseg foods. Take garw-rhd-hjinbrt or prescription medicines only as told by your health care provider. Relieving cramping and bloating Try walking around when you have cramps or feel bloated. Apply heat to your abdomen as told by your health care provider. Use a heat source that your health care provider recommends, such as a moist heat pack or a heating pad. ? Place a towel between your skin and the heat source. ? Leave the heat on for 20 30 minutes. ? Remove the heat if your skin turns bright red. This is especially important if you are unable to feel pain, heat, or cold. You may have a greater risk of getting burned. Eating and drinking Drink enough fluid to keep your urine pale yellow. Resume your normal diet as instructed by your health care provider. Avoid heavy or fried foods that are hard to digest. Avoid drinking alcohol for as long as instructed by your health care provider. Contact a health care provider if: You have blood in your stool 2 3 days after the procedure. Get help right away if: You have more than a small spotting of blood in your stool. You pass large blood clots in your stool. Your abdomen is swollen. You have nausea or vomiting. You have a fever. You have increasing abdominal pain that is not relieved with medicine. Summary After the procedure, it is common to have a small amount of blood in your stool. You may also have mild abdominal cramping and bloating. For the first 24 hours after the procedure, do not drive or use machinery, sign important documents, or drink alcohol. Contact your health care provider if you have a lot of blood in your stool, nausea or vomiting, a fever, or increased abdominal pain. This information is not intended to replace advice given to you by your health care provider. Make sure you discuss any questions you have with your health care provider. Document Released: 03/13/2005 Document Revised: 05/22/2018 Document Reviewed: 10/10/2016 Elsevier Patient Education 2020 [employer] Additional Information VACCINATE! IT SAVES LIVES! Members of the community who have not yet received the COVID-19 vaccine and would like to receive it can visit one of [facility] vaccine clinics. There are many vaccine clinic locations within the [facility]. For locations and available times, please visit [email or web address].[place].gov/. It is important to note that some COVID mobile vaccine clinics are held outdoors and may be canceled in rainy or stormy conditions. To learn more about pediatric vaccinations (ages 5-11), we invite you to visit the [facility] webpage. https://www.documistics.org/pag es/9017-Ihcba-Qpydxffjapu-Frequent gn-Wahye-Rpslqobio.html To learn more about the COVID-19 vaccine, we invite you to visit the [facility] website for a list of frequently asked questions. [email or web address]/[email or web address]-Gsrua ently_[email or web address]-Questions.pdf [facility] Patient Portal Access Instructions: Stay connected with your healthcare team and access your personal medical information anytime with the [facility] Patient Portal.If you would like a full copy of your medical records, please contact the [facility] Medical Records Department, Sunday through Sunday between 8a.m. and 4:30p.m. Please follow the directions below to access the portal: 1.Access the email account you provided upon registration to the [facility].2.Look for an invitation email from [facility].3.Open the email and access the invitation link: Accept Invitation to [facility].Fill in the required pettit to create your account. Sign into www.[employer] with your username and password that you created in the above steps to stay up to date. You can then view a summary of results, a summary of your visits, and the ability to download your summaries to your computer or send the information securely to a physician. Remember that your healthcare information is confidential, so carefully consider who you will allow to register on the [facility] Patient Portal for access to your information. You can also access the [facility] Patient Portal on the [facility] [employer]. Simply click on Health Records under Health Data and then click on the [employer] logo. HOW TO SAFELY DISPOSE OF PRESCRIPTION MEDICATIONS Please use one of the following methods to safely dispose of your unused medications. 1.Use a drug disposal kit: the drug disposal pouch allows you to safely discard your old and unused drugs. Ask your nurse to give you one when you are discharged.2.Visit a local take-back location: Many local pharmacies and police departments have programs that collect old and unwanted prescription drugs. Call your local pharmacy or go to http://[employer].MyVR/5B2Zk3x to find one close to you.3.Make use of household items: Use cat litter or old coffee grounds to dispose medications if other options are not available. Mix your drugs with these household products, seal them in an airtight container and throw it into the garbage. Call [facility]: [phone] to be sure your drugs can be disposed of in this way. Some medicines may require a different approach.4.Never flush your medications down the toilet. IF YOU HAVE BEEN PRESCRIBED AN OPIOID FOR PAIN If you have been prescribed an opioid (such as hydrocodone, oxycodone or morphine), it is critical to understand the possible side effects and risks of opioid pain medications. Even when taken as directed, opioids can have several side effects including: Tolerance, meaning you might need to take more of a medication for the same pain relief. Nausea, vomiting and/or constipation. Sleepiness, dizziness, dry mouth, confusion, depression or itching. Physical dependence, meaning you have withdrawal symptoms when a medication is stopped, can develop within a few days. KNOW YOUR RESPONSIBILITIES It is important to know exactly how much and how often to take the opioid pain medications you are prescribed. Never take opioids in higher amounts or more often than prescribed. Do not combine opioids with alcohol or other drugs that cause drowsiness, such as benzodiazepines, also known as benzos, including diazepam and alprazolam, muscle relaxants or sleep aids. Never sell or share prescription opioids. This is illegal. Store opioids in a secure place and out of reach of others (including children, family, friends and visitors). The last page of this document has been signed and retained as a CHART COPY. Signatures Patient Education Materials Diverticulosis Monitored Anesthesia Care, Care After Colonoscopy, Adult, Care After Monitored Anesthesia Care, Care After Colonoscopy, Adult, Care After Medication Leaflets My discharge plan and instructions have been reviewed and explained to me and I,JED RAI understand my current condition and have read and understand these discharge instructions. I have received a written copy of the plan/instructions. If I have questions, I am aware that I should contact my doctor. Patient/Belt Turner Signature: Date/Time: Relationship to Patient: ___ Witness Name/Signature: Date/Time: [facility] Anesthesiology Consult note 03-06-2022 Note Date & Type Note Facility 03-06-2022 Anesthesiology Consult note Patient: JED RAI Age: 61 years Sex: Female : 1960 Associated Diagnoses: None Author: ARELIS RODRIGUEZ Assessment Postanesthesia assessment Vitals: Reviewed Results: Vital signs from flowsheet : Vital Signs(Date Range: 03/05/2022 0:00 EDT - 03/06/2022 11:00 EDT) . Mental status: at preoperative baseline. Respiratory function: lungs are clear to auscultation. Respiratory support: none. CV function: Normal rate. Cardiovascular support: none. Pain. Nausea status: denies nausea. Postoperative hydration status: within normal limits. Digitally Signed by ARELIS RODRIGUEZ on 03/06/2022 11:01 AM [facility] Clinical Note 03-06-2022 Note Date & Type Note Facility 03-06-2022 Note [facility] ADMISSION HISTORY AND PHYSICIAL CHIEF COMPLAINT: HISTORY OF PRESENT ILLNESS: REVIEW OF SYSTEMS: ACTIVE PROBLEMS: (1) HTN (hypertension) ([id number]) MEDICATIONS: Active Inpt Meds: None Active PRN Meds: None One Time Meds: None Active IV Meds: Lactated Ringers Infusion 1,000 mL Start: 03/06/22 9:46:00 EDT, Rate: 50 mL/hr, 03/06/22 9:46:00 EDT ALLERGIES: (1) NKA FAMILY HISTORY: SOCIAL HISTORY: PHYSICAL EXAM: VITALS: BirccdFzbjSNYuwirVSBrV2BEM7CysoVd(k g) 03/06 10:05--107/59--------03/06 96.9 03/06 09:[id number] 24 Hr Tmax: 35.6 at 03/06 09:51 36 Hr Tmax: 35.6 at 03/06 09:51 Vital Signs are the last 5 in the past 48 hours. Weights display the last 5 within 7 days. Initial Wt: 03/06 96.9 kg 213 lb Current Wt: 03/06 96.9 kg 213 lb GENERAL: HEENT: CARDIOVASCULAR: RESPIRATORY: ABDOMEN: EXREMETIES: NEUROLOGICAL: PSYCHIATRIC: LABS: No 36hr Lab Data DIAGNOSTICS: IMPRESSION: PLAN: History and Physical Update I have examined the patient; reviewed the H&P and there are no changes to the H&P unless noted below. Digitally Signed by GISELLE PEREZ MD on 03/06/2022 10:21 AM [facility] Anesthesiology Consult note 03-06-2022 Note Date & Type Note Facility 03-06-2022 Anesthesiology Consult note Patient: FREDI January Age: 61 years Sex: Female : 1960 Associated Diagnoses: None Author: ARELIS RODRIGUEZ Preoperative Information Time of last food or liquid consumption: 03/06/2022 00:00:00 Anesthesia history Patient's history: negative. Family's history: negative. Health Status Allergies: Allergic Reactions (Selected) NKA, Allergies (1) ActiveReaction NKANone Documented Current medications: (Selected) Inpatient Medications Ordered Lactated Ringers Infusion 1,000 mL: 50 mL/hr, Intravenous Documented Medications Documented lisinopril 10 mg oral tablet: 10 mg, 1 tab(s), Oral, qDay, 0 Refill(s), Medications (1) Active Scheduled: (0) Continuous: (1) Lactated Ringers 1,000 mL 1,000 mL, Intravenous, 50 mL/hr PRN: (0) Problem list: Active Problems (1) HTN (hypertension) Histories Past Medical History: No active or resolved past medical history items have been selected or recorded. Family History: CAD - Coronary artery disease Mother Father Procedure history: Colonoscopy ([id number]) on 03/06/2022 at 61 Years. Social History Social & Psychosocial Habits No Data Available . Physical Examination No qualifying data available General: Alert and oriented. Airway: Normal temporomandibular joint mobility. Mallampati classification: II (soft palate, fauces, uvula visible). Head: Normocephalic. Dentition Evaluation: Intact. Neck: Supple. Respiratory: Lungs are clear to auscultation. Cardiovascular: Normal rate. Heart Sounds: Normal. Gastrointestinal: Soft. Musculoskeletal Normal range of motion. Integumentary: Intact. Neurologic: Alert. Review / Management Results review: No qualifying data available . Assessment and Plan [employer] Anesthesiologists (ASA) physical status classification: Class II. Anesthetic Preoperative Plan Premedication: None. Anesthetic technique: MAC. Induction: intravenously. Postoperative pain management: Per surgeon. Risks discussed: nausea, vomiting, headache, sore throat, dental injury, hypotension, allergic reaction, serious complications. Digitally Signed by ARELIS RODRIGUEZ on 03/06/2022 10:02 AM [facility] course Narrative Note Date & Type Note Facility Hospital course Narrative No data available for this section [facility] Summary Purpose Family History No Family History Records FoundNo Family History Records Found Advance Directives No Advanced Directives Records FoundNo Advanced Directives Records Found Additional Source Comments INFORMATION SOURCE (unrecogn ized section and content) DATE CREATED AUTHOR AUTHOR'S ORGANIZ ATION 06/09/2022 [facility] ([place]) Care Team (unrecognized sect ion and content) Care Team Personnel Name: LUIS ANDRES MD Member Role: Primary Care Physician Address: Address: [address] [place] [phone]- Care Team Related Persons Name: MATTHIEU RAI Address: [address] [place] [address] FOR RECORDS PERTAINING TO PATIENTS WHO ARE OR HAVE BEEN ENROLLED IN A CHEMICAL DEPENDENCY/SUBSTANCEABUSE PROGRAM, SOME INFORMATION MAY BE OMITTED. This clinical summary was aggregated from multiple sources. Caution should be exercised in using it in the provision of clinical care. This summary normalizes information from multiple sources, and as a consequence, information in this document may materially change the coding, format and clinical context of patient data. In addition, data may be omitted in some cases. CLINICAL DECISIONS SHOULD BE BASED ON THE PRIMARY CLINICAL RECORDS. [employer] provides no warranty or guarantee of the accuracy or completeness of information in this document.
== END | disposition home or self-care (01) ==
LOC: OPBI 07:56
PROVIDERS: PCP Family Medicine; Referring Provider Family Medicine; Visit Provider Family Medicine
DX: Z12.31 Encounter for screening mammogram for malignant neoplasm of breast (principal)
CPT/HCPCS: 77063; 77067

== ENCOUNTER → 2023-10-02 | Outpatient (CLI) | payer OTHER, SELFPAY ==
--- OUTSIDE RECORDS SUMMARY | 2023-10-02 10:34 | XMS RPT_ITS | CCD ---
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 DESAI [facility] MCKENNA FU., DR. SMITH Primary Care Unav ailable [...] Date Time Vital Sign Value Performing Clinician Marion carvajal 03-06-2022 10:49-0400 Body temperature 97.7 [degF] DR GISELLE PEREZ MD [facility] 03-06-2022 10:49-0400 Diastolic blood pressure 78 mm[Hg] DR GISELLE PEREZ MD [facility] 03-06-2022 10:49-0400 Heart rate 92 /min DR GISELLE PEREZ MD [facility] 03-06-2022 10:49-0400 Respiratory rate 17 /min DR GISELLE PEREZ MD [facility] 03-06-2022 10:49-0400 Systolic blood pressure 148 mm[Hg] DR GISELLE PEREZ MD [facility] 03-06-2022 10:45-0400 Diastolic Blood Pressure NBP [address] GISELLE PEREZ MD [facility] 03-06-2022 10:45-0400 Heart rate 91 /min DR GISELLE PEREZ MD [facility] 03-06-2022 10:45-0400 Respiratory rate 21 /min DR GISELLE PEREZ MD [facility] 03-06-2022 10:45-0400 Systolic Blood Pressure NBP [address] GISELLE PEREZ MD [facility] 03-06-2022 10:34-0400 Diastolic Blood Pressure NBP [address] GISELLE PEREZ MD [facility] 03-06-2022 10:34-0400 Heart rate 94 /min DR GISELLE PEREZ MD [facility] 03-06-2022 10:34-0400 Respiratory rate 18 /min DR GISELLE PEREZ MD [facility] 03-06-2022 10:34-0400 Systolic Blood Pressure NBP [address] GISELLE PEREZ MD [facility] 03-06-2022 10:30-0400 Heart rate 91 /min DR GISELLE PEREZ MD [facility] 03-06-2022 10:26-0400 Diastolic Blood Pressure NBP [address] GISELLE PEREZ MD [facility] 03-06-2022 10:26-0400 Systolic Blood Pressure NBP [address] GISELLE PEREZ MD [facility] 03-06-2022 10:15-0400 Body height [address] GISELLE PEREZ MD [facility] 03-06-2022 09:51-0400 Body height [address] GISELLE PEREZ MD [facility] 03-06-2022 09:51-0400 Body temperature 96.08 [degF] DR GISELLE PEREZ MD [facility] 03-06-2022 09:51-0400 Body weight 96.[address] GISELLE PEREZ MD [facility] 03-06-2022 09:51-0400 Diastolic blood pressure 77 mm[Hg] DR GISELLE PEREZ MD [facility] 03-06-2022 09:51-0400 Heart rate 96 /min DR GISELLE PEREZ MD [facility] 03-06-2022 09:51-0400 Systolic blood pressure 151 mm[Hg] DR GISELLE PEREZ MD [facility] Encounters Encounter Date Encounter Type Care Provider Facility Start: 03-06-2022 End: 03-06-[address] GISELLE PEREZ MD. Facility:B Start: 03-06-2022 End: 03-06-[address] GISELLE PEREZ MD [facility] Procedures Date Procedure Procedure Detail Performing Clinician Start: 03-06-[address] GISELLE PEREZ MD Payers Date Payer Category Payer Unknown [id number] 2022 Unknown [id number] 1960 Unknown [id number] Social History Date Type Detail Facility Tobacco smoking status No Smoking Status Entered [facility] Sex Assigned At Female [facility] Functional Status Date Assessment Result Facility 03-06-2022 Functional Status Activity Statu s ADL Up to bathroom [facility] 03-06-2022 Functional Status Maintained [facility] Mental Status Date Assessment Result Facility 03-06-2022 Mental Status Oriented x 4 [facility] Evaluation + Plan note 03-06-2022 Note Date & Type Note Facility [facility] H[facility] AN D PHYSICIAL CHIEF COMPLAINT: HISTORY OF PRESENT ILLNESS: REVIEW OF SYSTEMS: ACTIVE PROBLEMS: (1) HTN (hypertension) ([id number]) MEDICATIONS: Active Inpt Meds: None Active PRN Meds: None One Time Meds: None Active IV Meds: Lactated Ringers Infusion 1,000 mL Start: 03/06/22 9:46:00 EDT, Rate: 50 mL/hr, 03/06/22 9:46:00 EDT ALLERGIES: (1) NKA FAMILY HISTORY: SOCIAL HISTORY: PHYSICAL EXAM: VITALS: KpkmpsThzvXKXbnvjAAJyX1SCC9BdinDw(kg) 03/06 10:05--107/59--------03/06 96.9 03/06 09:5135.6151/[id number] 24 Hr Tmax: 35.6 at 03/06 09:51 [...] changes to the H&P unless noted below. [facility] Discharge instructions 03-06-2022 Note Date & [...] overweight. Not getting enough exercise. Smoking. Taking bnwv-gfr-oinsdpx pain medicines, like aspirin and ibuprofen. Having [...] health care provider or your diet and nutrition internship (dietitian). ?Take a fiber supplement or probiotic, if your health care provider approves. Take divm-ukm-ooowyhu and prescription medicines only as told by [...] 04/26/2005 Document Revised: 07/12/2018 Document Reviewed: 06/18/2017 [employer] Patient Education 2020 [employer]. 03/06/2022 11:08:30 Monitored Anesthesia Care, Care After [...] before eating solid foods. General instructions Take wyvs-pom-cbfnaps and prescription medicines only as told by [...] 11/19/2016 Document Revised: 10/28/2018 Document Reviewed: 11/19/2016 [employer] Patient Education 2020 [employer]. 03/06/2022 11:08:13 Colonoscopy, Adult, Care After Colonoscopy, [...] a slower pace than normal. ?Eat soft, visl-zj-vbaovb foods. Take xqjh-wlu-cdrrgic or prescription medicines only as told by [...] 03/13/2005 Document Revised: 05/22/2018 Document Reviewed: 10/10/2016 [employer] Patient Education 2020 [employer]. 03/06/2022 10:54:22 Monitored Anesthesia Care, Care After [...] before eating solid foods. General instructions Take rqnz-xar-lwqqkbx and prescription medicines only as told by [...] 11/19/2016 Document Revised: 10/28/2018 Document Reviewed: 11/19/2016 [employer] Patient Education 2020 [employer]. 03/06/2022 10:54:11 Colonoscopy, Adult, Care After Colonoscopy, [...] a slower pace than normal. ?Eat soft, jphd-rz-rildwr foods. Take kqhj-nsx-cuaqdbm or prescription medicines only as told by [...] 03/13/2005 Document Revised: 05/22/2018 Document Reviewed: 10/10/2016 [employer] Patient Education 2020 [employer]. Follow Up Care 02/02/2022 11:14:58 With:GISELLE PEREZ Address: [address] [place] [phone] Business (1) When: only if needed Comments:You will need another colonoscopy in 10 years [facility] Summary of episode note 03-06-2022 Note Date & Type Note Facility 03-06-2022 Summary of episode note Discharge Instructions Thank you for allowing [facility] to assist you with your healthcare needs. The following is important discharge information regarding your hospital visit. Your Care Team LUIS ANDRES MD What to do next Follow Up Appointments Follow Up with GISELLE PEREZ When Only if needed Why: You will need another colonoscopy in 10 years Where: [address] [phone] [facility] (1) The Following Activity and Diet Have [...] overweight. Not getting enough exercise. Smoking. Taking albd-wbo-wahdisj pain medicines, like aspirin and ibuprofen. Having [...] health care provider or your diet and nutrition internship (dietitian). ? Take a fiber supplement or probiotic, if your health care provider approves. Take rxlh-sye-jjaburw and prescription medicines only as told by [...] 04/26/2005 Document Revised: 07/12/2018 Document Reviewed: 06/18/2017 [employer] Patient Education 2020 [employer] Monitored Anesthesia Care, Care After These [...] before eating solid foods. General instructions Take lsho-uaa-cfoaouu and prescription medicines only as told by [...] 11/19/2016 Document Revised: 10/28/2018 Document Reviewed: 11/19/2016 [employer] Patient Education 2020 [employer]. Colonoscopy, Adult, Care After This sheet gives [...] slower pace than normal. ? Eat soft, dnbb-np-vvjzsh foods. Take chne-zbr-kpvawou or prescription medicines only as told by [...] 03/13/2005 Document Revised: 05/22/2018 Document Reviewed: 10/10/2016 [employer] Patient Education 2020 [employer] Monitored Anesthesia Care, Care After These [...] before eating solid foods. General instructions Take tgyy-asz-khdsewz and prescription medicines only as told by [...] 11/19/2016 Document Revised: 10/28/2018 Document Reviewed: 11/19/2016 [employer] Patient Education 2020 [employer]. Colonoscopy, Adult, Care After This sheet gives [...] slower pace than normal. ? Eat soft, msor-md-gueiwt foods. Take biar-qva-gjdvsrt or prescription medicines only as told by [...] Document Reviewed: 10/10/2016 Elsevier Patient Education 2020 [employer] Additional Information VACCINATE! IT SAVES LIVES! Members of the community who have not yet received the COVID-19 vaccine and would like to receive it can visit one of [facility] vaccine clinics. There are many vaccine clinic locations within the [facility]. For locations and available times, please visit [email or web address] [email or web address] It is important to note that some COVID mobile vaccine clinics are held outdoors and may be canceled in rainy or stormy conditions. To learn more about pediatric vaccinations (ages 5-11), we invite you to visit the [employer] webpage. [email or web address]://[email or web address]/pag [email or web address]-Zaacy-[email or web address]-[email or web address]-Voitz-Uozpxphht.html To learn more about the COVID-19 vaccine, we invite you to visit the [facility] website for a list of frequently asked questions. [email or web address] Old Reader/assets/Patient e-yun-Frxuwndo/womkz-Ejlnlqt-Cbkcl ently_Asked-Questions.pdf [facility] Patient Portal Access Instructions: Stay connected with your healthcare team and access your personal medical information anytime with the [facility] Patient Portal.If you would like a full copy of your medical records, please contact the [facility] Medical Records Department, Sunday through Sunday between 8a.m. and 4:30p.m. Please follow the directions below to access the portal: 1.Access the email account you provided upon registration to the [facility].2.Look for an invitation email from [facility].3.Open the email and access the invitation link: Accept Invitation to [facility]4.Fill in the required pettit to create your account. Sign into www.The Old Reader with your username and password that you [...] you will allow to register on the [facility] Patient Portal for access to your information. You can also access the [facility] Patient Portal on the [employer] zenobia. Simply click on Health Records under Health Data and then click on the [employer] logo. HOW TO SAFELY DISPOSE OF PRESCRIPTION [...] Call your local pharmacy or go to [email or web address] [email or web address] to find one close to you.3.Make use of household items: Use cat litter or old coffee grounds to dispose medications if other options are not available. Mix your drugs with these household products, seal them in an airtight container and throw it into the garbage. Call [facility]: [phone] to be sure your drugs can be [...] aware that I should contact my doctor. 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 Signature: Date/Time: Relationship to Patient: ___ Witness Name/Signature: Date/Time: [facility] Anesthesiology Consult note 03-06-2022 Note Date & [...] by ARELIS RODRIGUEZ on 03/06/2022 11:01 AM [facility] Clinical Note 03-06-2022 Note Date & Type Note Facility 03-06-2022 Note [facility] H[facility] AND PHYSICIAL CHIEF COMPLAINT: HISTORY OF PRESENT ILLNESS: REVIEW OF SYSTEMS: ACTIVE PROBLEMS: (1) HTN (hypertension) ([id number]) MEDICATIONS: Active Inpt Meds: None Active PRN Meds: None One Time Meds: None Active IV Meds: Lactated Ringers Infusion 1,000 mL Start: 03/06/22 9:46:00 EDT, Rate: 50 mL/hr, 03/06/22 9:46:00 EDT ALLERGIES: (1) NKA FAMILY HISTORY: SOCIAL HISTORY: PHYSICAL EXAM: VITALS: ObeocdTzlmFGLblcjYYVcO2BAS5LnzuMs(k g) 03/06 10:05--107/59--------03/06 96.9 03/06 09:5135.6151/[id number] 24 Hr Tmax: 35.6 at 03/06 09:51 [...] GISELLE PEREZ MD on 03/06/2022 10:21 AM [facility] Anesthesiology Consult note 03-06-2022 Note Date & [...] artery disease Mother Father Procedure history: Colonoscopy ([id number]) on 03/06/2022 at 61 Years. Social History [...] qualifying data available . Assessment and Plan [place] [employer] Anesthesiologists (ASA) physical status classification: Class II. Anesthetic Preoperative Plan Premedication: None. Anesthetic technique: MAC. Induction: intravenously. Postoperative pain management: Per surgeon. Risks discussed: nausea, vomiting, headache, sore throat, dental injury, hypotension, allergic reaction, serious complications. Digitally Signed by ARELIS RODRIGUEZ on 03/06/2022 10:02 AM [facility] course Narrative Note Date & Type Note Facility Hospital course Narrative No data available for this section [facility] Summary Purpose Family History No Family History Records FoundNo Family History Records Found Advance Directives No Advanced Directives Records FoundNo Advanced Directives Records Found Additional Source Comments INFORMATION SOURCE (unrecogn ized section and content) DATE CREATED AUTHOR AUTHOR'S ORGANIZ ATION 06/09/2022 [facility] ([place]) Care Team (unrecognized sect ion and content) Care Team Personnel Name: LUIS ANDRES MD Member Role: Primary Care Physician Address: Address: [address] [place] [id number]- Care Team Related Persons Name: MATTHIEU RAI Address: [address] [place] [address] FOR RECORDS PERTAINING TO PATIENTS WHO ARE [...] BE BASED ON THE PRIMARY CLINICAL RECORDS. [employer] provides no warranty or guarantee of the accuracy or completeness of information in this document.
[2023-10-05 17:07] LABS: HPV APTIMA, High Risk Negative (Negative)
[2023-10-05 18:52] LABS: HPV Reflexed? YES, CHARGE PATIENT
== END | disposition home or self-care (01) ==
PROVIDERS: PCP Family Medicine; Referring Provider Nurse Practitioner Family; Visit Provider Nurse Practitioner Family
DX: Z12.4 Encounter for screening for malignant neoplasm of cervix (principal)
CPT/HCPCS: 87624; 88175; G0145

== ENCOUNTER → 2024-04-05 | Outpatient (CLI) | payer OTHER, SELFPAY ==
[2024-04-05 10:15] LABS: ALB/GLOB Ratio 0.9 RATIO (0.9-2.4); AST(SGOT) 17 U/L (15-37); Alanine Aminotransfer ALT/SGPT 23 U/L (13-56); Albumin, Serum 3.2 g/dL (3.2-5.0); Alkaline Phosphatase 145 U/L (45-117); Anion Gap 4 (5-15); BUN 15 mg/dL (7-18); Calcium,Total 9.1 mg/dL (8.5-10.1); Chloride 107 mmol/L (98-107); Cholesterol 150 mg/dL (200); Creatinine, Serum 0.83 mg/dL (0.55-1.02); EST Glomerular Filtration Rate 74 mL/min (>60); Est Glom Filt Rate - Afr Amer 89 mL/min (>60); Globulin 3.4 g/dL (2.2-4.2); Glucose 97 mg/dL (74-106); High Density Lipoprotein 50 mg/dL; Potassium 4.5 mmol/L (3.5-5.1); Protein, Total 6.6 g/dL (6.4-8.2); Sodium Level 139 mmol/L (136-145); Triglycerides 164 mg/dL; Very Low Density Lipoprotein 33 mg/dL (5-40)
[2024-04-06 08:08] LABS: CRP, High Sensitivity 1.97 mg/L (0.00-3.00)
== END | disposition home or self-care (01) ==
LOC: LAB 08:26
PROVIDERS: PCP Family Medicine; Referring Provider Family Medicine; Visit Provider Family Medicine
DX: I10 Essential (primary) hypertension (principal); Z82.49 Family history of ischemic heart disease and other diseases of the circulatory system
CPT/HCPCS: 36415; 80053; 80061; 86141

== ENCOUNTER → 2024-10-14 | Outpatient (CLI) | payer OTHER, SELFPAY ==
--- NOTE | 2024-10-14 16:07 | BI_ITS ---
PROCEDURE: SCRN MAMM (CAD)W/COREY BILAT REASON FOR EXAM: F, Age 64 y/o, no family history. Annual follow-up. TECHNIQUE: Bilateral screening digital breast tomosynthesis with 2D and 3D images. Computer aided detection. COMPARISON: Prior exam(s) dating back to October 01, 2023.. FINDINGS: There are scattered areas of fibroglandular density. Stable fat containing bilateral axillary lymph nodes. No suspicious masses, areas of developing architectural distortion, or suspicious calcifications. BI/SCRN MAMM (CAD)W/COREY BILAT IMPRESSION: BI-RADS 2: BENIGN. RECOMMEND ANNUAL MAMMOGRAPHIC SCREENING. Follow-up code: Routine Follow-up The patient will be notified of the results by letter. Reading Location: [id number]
== END | disposition home or self-care (01) ==
LOC: OPBI 16:04
PROVIDERS: PCP Family Medicine; Referring Provider Family Medicine; Visit Provider Family Medicine
DX: Z12.31 Encounter for screening mammogram for malignant neoplasm of breast (principal)
CPT/HCPCS: 77063; 77067

== ENCOUNTER → 2024-10-20 | Outpatient (CLI) | payer OTHER, SELFPAY ==
--- NOTE | 2024-10-20 12:19 | STRESSREP_ITS ---
Stress Test Report Date: 10/20/2024 Procedure: Exercise tolerance test/imaging study Indications: Chest pain Consent: Per the patient Procedure: The patient exercised on a Danie protocol for 4 minutes and 32 seconds achieving a peak heart rate of 148 bpm (94% predicted maximal heart rate) with a peak blood pressure 166/90 mmHg and a peak MET capacity of 7 METs. The baseline ECG demonstrated normal sinus rhythm. The peak exercise ECG demonstrated about [address] depression in the inferior leads. EKG during recovery revealed return of ST segments to baseline [There were no cardiac dysrhythmias pretest, during exercise, or recovery]. The functional capacity was considered normal for age. There was [no complaint of chest discomfort during exercise or recovery]. The examination was discontinued secondary to achieving target heart rate. Impression: 1. Technically adequate (percent predicted maximal heart rate greater than 85%) exercise tolerance test 2. Stress test is positive for exercise-induced EKG changes of ischemia 3. The test test is negative for exercise-induced chest pain 4. Functional capacity is normal for age 5. Nuclear images pending Myocardial perfusion imaging study: Technique: The patient was injected with 12 mCi of technetium 99m Cardiolite and subsequently rest SPECT Cardiolite nuclear imaging was obtained in the horizontal long, vertical long, and short axis views. The patient exercised on a Danie protocol. Please see above for details. The patient was injected with 34.7 mCi of technetium 99m Cardiolite and subsequently stress SPECT Cardiolite nuclear imaging was obtained in the horizontal long, vertical long, and short axis views. A gated Cardiolite study at peak stress was obtained. Interpretation: Rest and stress SPECT Cardiolite nuclear imaging status post realignment, normalization, and attenuation correction, demonstrates no evidence of significant ischemia or infarction. The gated Cardiolite study demonstrates no significant regional wall motion abnormalities. The reported LVEF is greater than 70%. Impression: 1. There is no evidence of significant ischemia or infarction. Please see above for the EKG portion. 2. The gated Cardiolite study reports an LVEF of greater than 70%. This note was generated with [employer] On The Go software. It may contain incorrect words, spelling, and punctuation that were not noted in checking the note before signing.
== END | disposition home or self-care (01) ==
LOC: CVS 06:30
PROVIDERS: PCP Family Medicine; Referring Provider Family Medicine; Visit Provider Family Medicine
DX: R07.9 Chest pain, unspecified (principal)
CPT/HCPCS: 78452; 93017; A9500; A4216

== ENCOUNTER → 2025-03-21 | Outpatient (CLI) | payer OTHER, SELFPAY ==
--- OUTSIDE RECORDS SUMMARY | 2025-03-21 08:09 | XMS RPT_ITS | CCD ---
Author Organization [facility] Care Team Providers Care Wildlife Removal Specialist Name Role Phone MCKENNA FU, DR SMITH Primary Care Physician ANA FU., DR. DESAI Attending Unavaila diann LU MD., DR. SMITH Primary Care Unav ailable Luis Lu Primary Care Unavailable Luis Lu Attending Unavailable Luis Lu Referring Unavailable Luis Lu Primary Care Unavailable Luis Lu Attending Unavailable Luis Lu Referring Unavailable Luis Lu Primary Care Unavailable Luis Lu Attending Unavailable Luis Lu Referring Unavailable Luis Lu Primary Care Unavailable Luis Lu Consulting Unavailable Lavern Noguera Attending Unavailabl e Luis Lu Referring Unavailable Luis Lu Primary Care Unavailable Luis Lu Attending Unavailable Luis Lu Referring Unavailable Dr. Luis Lu MD Primary Care Provider Dr. Luis Lu MD Attending Provider [phone] Dr. Luis Lu MD Referring Provider Dr. Luis Lu MD Other Provider [phone] Chuckie FU, Dr. Puckett Attending Provider Medications Current Medications Medication Drug Class(es) Dates Sig (Normalized) Sig (Original) lisinopril 10 mg oral tablet (1 source) Angiotensin Converting Enzyme Inhibitor Start: 03-03-2022 lisinopril 10 mg oral tablet Dose : 10 mg = 1 tab(s), Oral, qDay, 0 Refill(s) Start Date: 03/03/22 Status: Ordered Problems Problem Classification Problem Date Documented Da te Episodic/Chronic Essential hypertension (1 source) Essential (primary) hypertension; Translations: [Essential (primary) hypertension] Onset: 04-16-2024 Chronic Nonspecific chest pain (2 sources) Chest pain, unspecified; Translations: [Chest pain, unspecified] Onset: 10-28-2024 Episodic Other screening for suspected conditions (not mental disorders or infectious disease) (1 source) Encounter for screening mammogram for malignant neoplasm of breast; Translations: [Encounter for screening mammogram for malignant neoplasm of breast] Onset: 10-24-2024 Episodic Residual codes; unclassified (1 source) Family history of ischemic heart disease and other diseases of the circulatory system; Translations: [Family history of ischemic heart disease and other diseases of the circulatory system] Onset: 10-02-2024 Episodic Results Test Name Value Interpretation Reference Range Facility Cardiovascular stress test r eportOrdered By: Lavern Noguera on 10-20-2024 Study report [facility] [address] [place] [address] MR#: [id number] Acct: [id number] Name: JED RAI Rep #: [id number] : 1960 64 From: Lavern rose MD Primary Care: Dr. Luis Lu MD Status: REG [facility] Referring Dr: Luis Lu MD Sex: F C Stress Test Report Date: 10/20/2024 Procedure: Exercise tolerance test/imaging study Indications: Chest pain Consent: Per the patient Procedure: The patient exercised on a Danie protocol for 4 minutes and 32 seconds achievinga peak heart rate of 148 bpm (94% predicted maximal heart rate) with a peak blood pressure 166/90 mmHg and a peak MET capacity of 7 METs. The baseline ECG demonstrated normal sinus rhythm. The peak exercise ECG demonstrated about [address] depression in the inferior leads. EKG during recovery revealed return of ST segments to baseline [There were no cardiac dysrhythmias pretest, during exercise, or recovery]. The functional capacity was considered normal for age. There was [no complaint of chest discomfort during exercise or recovery]. The examination was discontinued secondary to achieving target heart rate. Impression: 1. Technically adequate (percent predicted maximal heart rate greater than 85%)exercise tolerance test 2. Stress test is positive for exercise-induced EKG changes of ischemia 3. The test test is negative for exercise-induced chest pain 4. Functional capacity is normal for age 5. Nuclear images pending Myocardial perfusion imaging study: Technique: The patient was injected with 12 mCi of technetium 99m Cardiolite and subsequently rest SPECT Cardiolite nuclear imaging was obtained in the horizontallong, vertical long, and short axis views. The patient exercised on a Danie protocol. Please see above for details. The patient was injected with 34.7 mCi of technetium 99m Cardiolite and subsequently stress SPECT Cardiolite nuclear imaging was obtained in the horizontal long, vertical long, and short axis views. A gated Cardiolite study at peak stress was obtained. Interpretation: Rest and stress SPECT Cardiolite nuclear imaging status post realignment, normalization, and attenuation correction, demonstrates no evidence of significant ischemia or infarction. The gated Cardiolite study demonstrates no significant regional wall motion abnormalities. The reported LVEF is greater than 70%. Impression: 1. There is no evidence of significant ischemia or infarction. Please see above for the EKG portion. 2. The gated Cardiolite study reports an LVEF of greater than 70%. This note was generated with PandaBedation software. It may contain incorrectwords, spelling, and punctuation that were not noted in checking the note beforesigning. 10/20/24 1223 Date _ Lavern Noguera MD CC: Dr. Luis Lu MD ~ Date Dictated: 10/20/24 1219 Date Transcribed: 10/20/241218 Hot Car Operator: NN Signed [facility] Work Phone: Stress Reporton 10-20-2024 Stress Report [facility] Cardiovascular Services [address] [place] [address] MR#: [id number] Acct: [id number] Name: JED RAI Rep #: [id number] : 1960 64 From: Lavern Noguera MD Primary Care: Dr. Luis Lu MD Status: REG CLI Referring Dr: Luis Lu MD Sex: F C Stress Test Report Date: 10/20/2024 Procedure: Exercise tolerance test/imaging study Indications: Chest pain Consent: Per the patient Procedure: The patient exercised on a Danie protocol for 4 minutes and 32 seconds achieving a peak heart rate of 148 bpm (94% predicted maximal heart rate) with a peak blood pressure 166/90 mmHg and a peak MET capacity of 7 METs. The baseline ECG demonstrated normal sinus rhythm. The peak exercise ECG demonstrated about [address] depression in the inferior leads. EKG during recovery revealed return of ST segments to baseline [There were no cardiac dysrhythmias pretest, during exercise, or recovery]. The functional capacity was considered normal for age. There was [no complaint of chest discomfort during exercise or recovery]. The examination was discontinued secondary to achieving target heart rate. Impression: 1. Technically adequate (percent predicted maximal heart rate greater than 85%) exercise tolerance test 2. Stress test is positive for exercise-induced EKG changes of ischemia 3. The test test is negative for exercise-induced chest pain 4. Functional capacity is normal for age 5. Nuclear images pending Myocardial perfusion imaging study: Technique: The patient was injected with 12 mCi of technetium 99m Cardiolite and subsequently rest SPECT Cardiolite nuclear imaging was obtained in the horizontal long, vertical long, and short axis views. The patient exercised on a Danie protocol. Please see above for details. The patient was injected with 34.7 mCi of technetium 99m Cardiolite and subsequently stress SPECT Cardiolite nuclear imaging was obtained in the horizontal long, vertical long, and short axis views. A gated Cardiolite study at peak stress was obtained. Interpretation: Rest and stress SPECT Cardiolite nuclear imaging status post realignment, normalization, and attenuation correction, demonstrates no evidence of significant ischemia or infarction. The gated Cardiolite study demonstrates no significant regional wall motion abnormalities. The reported LVEF is greater than 70%. Impression: 1. There is no evidence of significant ischemia or infarction. Please see above for the EKG portion. 2. The gated Cardiolite study reports an LVEF of greater than 70%. This note was generated with PandaBedation software. It may contain incorrect words, spelling, and punctuation that were not noted in checking the note before signing. 10/20/24 1223 Date Lavern Noguera MD CC: Dr. Luis Lu MD Date Dictated: 10/20/241218 Date Transcribed: 10/20/241218 Hot Car Operator: NN Signed Normal [facility] Breast imaging reportOrdered By: John Torres on 10-14-2024 Study report [facility] Imaging Services [address] [place] [address] SCRN MAMM (CAD)W/COREY BILAT MR#: [id number] Acct: [id number] Name: JED RAI Rep #: [id number] : 1960 F 64 From: Jovanny Torres MD PCP: Dr. Luis Lu MD Status: [facility] CLI Study:SCRN MAMM (CAD)W/COREY BILAT Date of Exa m: 10/14/24 Exam# [id number] Ordering Dr: Christine Lu MD PROCEDURE: SCRN MAMM (CAD)W/COREY BILAT REASON FOR EXAM: F, Age 64 y/o, no family history. Annual follow-up. TECHNIQUE: Bilateral screening digital breast tomosynthesis with 2D and 3D images. Computeraided detection. COMPARISON: Prior exam(s) dating back to October 01, 2023.. FINDINGS: There are scattered areas of fibroglandular density. Stable fat containing bilateral axillary lymph nodes. No suspicious masses, areas of developing architectural distortion, or suspicious calcifications. BI/SCRN MAMM (CAD)W/COREY BILAT IMPRESSION: BI-RADS 2: BENIGN. RECOMMEND ANNUAL MAMMOGRAPHIC SCREENING. Follow-up code: Routine Follow-up The patient will be notified of the results by letter. Reading Location: [id number] CC: Dr. Luis Lu MD ~ Hot Car Operator: Signed [facility] SCRN MAMM (CAD)W/COREY BILATo n 10-14-2024 SCRN MAMM (CAD)W/COREY BILAT [facility] [address] [place] [address] SCRN MAMM (CAD)W/COREY BILAT MR#: [id number] Acct: [id number] Name: JED RAI Rep #: [id number] : 1960 F 64 From: John michaud MD PCP: Dr. Luis Lu MD Status: REG CLI Study: SCRN MAMM (CAD)W/COREY BILAT Date of Exam: 12/05 Exam# [id number] Ordering Dr: Luis Lu PROCEDURE: SCRN MAMM (CAD)W/COREY BILAT REASON FOR EXAM: F, Age 64 y/o, no family history. Annual follow-up. TECHNIQUE: Bilateral screening digital breast tomosynthesis with 2D and 3D images. Computer aided detection. COMPARISON: Prior exam(s) dating back to October 01, 2023.. FINDINGS: There are scattered areas of fibroglandular density. Stable fat containing bilateral axillary lymph nodes. No suspicious masses, areas of developing architectural distortion, or suspicious calcifications. BI/SCRN MAMM (CAD)W/COREY BILAT IMPRESSION: BI-RADS 2: BENIGN. RECOMMEND ANNUAL MAMMOGRAPHIC SCREENING. Follow-up code: Routine Follow-up The patient will be notified of the results by letter. Reading Location: [id number] CC: Dr. Luis Lu MD Hot Car Operator: Signed Normal [facility] CRP, High Sensitivity 117133 on 04-06-2024 CRP, HIGH SENS 1.97 mg/L Normal 0.00-3.00 [facility] Comment on above: Result Comment: Rela tive Risk for Future Cardiovascular Event Low <1.00 Average 1.00 - 3.00 High >3.00 Performed at: [address] [id number] Horticultural Nursery Assistant: Carmine Lopez PhD, Phone: [phone] Performed By: #### L 3100.7870 #### [facility] [address] [place], [address] Comprehensive Metabolic Prof ilon 04-05-2024 Albumin [Mass/Vol] 3.2 g/dL Normal 3.2-5.0 [facility] Comment on above: Order Comment: Order Date: 09/25/23 Order Info: [id number] - CMP Order Info: [id number] - LIPID Performed By: #### L 500.4050, L500.4100 #### [facility] [address] [place], [address] Albumin/Globulin [Mass ratio] 0.9 {ratio} Normal 0.9-2.4 [facility] Comment on above: Order Comment: Order Date: 09/25/23 Order Info: 0786-1 - CMP Order Info: [id number] - LIPID Performed By: #### L 500.4050, L500.4100 #### [facility] [address] [place], [address] ALK P 145 U/L High 45-117 [facility] Comment on above: Order Comment: Order Date: 09/25/23 Order Info: 0786-1 - CMP Order Info: [id number] - LIPID Performed By: #### L 500.4050, L500.4100 #### [facility] [address] [place], [address] ALT [Catalytic activity/Vol] 23 U/L Normal 13-56 [facility] Comment on above: Order Comment: Order Date: 09/25/23 Order Info: 0786-1 - CMP Order Info: [id number] - LIPID Performed By: #### L 500.4050, L500.4100 #### [facility] [address] [place], [address] AST [Catalytic activity/Vol] 17 U/L Normal 15-37 [facility] Comment on above: Order Comment: Order Date: 09/25/23 Order Info: 0786-1 - CMP Order Info: [id number] - LIPID Performed By: #### L 500.4050, L500.4100 #### [facility] [address] [place], [address] Bilirubin [Mass/Vol] 1.10 mg/dL High 0.20-1.00 [facility] Comment on above: Order Comment: Order Date: 09/25/23 Order Info: 0786-1 - CMP Order Info: [id number] - LIPID Result Comment: For patients on eltrombopag therapy, use of Dimension [place] TBIL is not recommended. Performed By: #### L 500.4050, L500.4100 #### [facility] [address] [place], [address] BUN/CRE 18.0 RATIO Normal 10-20 [facility] Comment on above: Order Comment: Order Date: 09/25/23 Order Info: 0786- - CMP Order Info: [id number] - LIPID Performed By: #### L 500.4050, L500.4100 #### [facility] [address] [place], [address] CA,Total 9.1 mg/dL Normal 8.5-10.1 [facility] Comment on above: Order Comment: Order Date: 09/25/23 Order Info: 0786- - CMP Order Info: [id number] - LIPID Performed By: #### L 500.4050, L500.4100 #### [facility] [address] [place], [address] Chloride [Moles/Vol] 107 mmol/L Normal 98-107 [facility] Comment on above: Order Comment: Order Date: 09/25/23 Order Info: 0786-1 - CMP Order Info: [id number] - LIPID Performed By: #### L 500.4050, L500.4100 #### [facility] [address] [place], [address] CO2 [Moles/Vol] 28.0 mmol/L Normal 21.0-32.0 [facility] Comment on above: Order Comment: Order Date: 09/25/23 Order Info: 0786-1 - CMP Order Info: [id number] - LIPID Performed By: #### L 500.4050, L500.4100 #### [facility] [address] [place], [address] Creatinine [Mass/Vol] 0.83 mg/dL Normal 0.55-1.02 [facility] Comment on above: Order Comment: Order Date: 09/25/23 Order Info: 0786 - CMP Order Info: [id number] - LIPID Result Comment: The validity of the calculated GFR GFRAA in patients over 70 years has not been determined. Clinical correlation is essential. Performed By: #### L 500.4050, L500.4100 #### [facility] [address] [place], [address] EST GFR - AA 89 mL/min Normal >60 [facility] Comment on above: Order Comment: Order Date: 09/25/23 Order Info: 0786- - CMP Order Info: [id number] - LIPID Result Comment: Afri can [place]ian GFR Calc Performed By: #### L 500.4050, L500.4100 #### [facility] [address] [place], [address] GAP 4 Low 5-15 [facility] Comment on above: Order Comment: Order Date: 09/25/23 Order Info: 0786-1 - CMP Order Info: [id number] - LIPID Performed By: #### L 500.4050, L500.4100 #### [facility] [address] [place], [address] GFR/1.73 sq M.predicted among non-blacks MDRD (S/P/Bld) [Vol rate/Area] 74 mL/min/{1.73_m2} Normal >60 [facility] Comment on above: Order Comment: Order Date: 09/25/23 Order Info: 0786-1 - CMP Order Info: [id number] - LIPID Result Comment: Non- GFR Calc Performed By: #### L 500.4050, L500.4100 #### [facility] [address] [place], [address] Globulin (S) [Mass/Vol] 3.4 g/dL Normal 2.2-4.2 [facility] Comment on above: Order Comment: Order Date: 09/25/23 Order Info: 0786- - CMP Order Info: [id number] - LIPID Performed By: #### L 500.4050, L500.4100 #### [facility] [address] [place], [address] Glucose [Mass/Vol] 97 mg/dL Normal 74-106 [facility] Comment on above: Order Comment: Order Date: 09/25/23 Order Info: 0786- - CMP Order Info: [id number] - LIPID Performed By: #### L 500.4050, L500.4100 #### [facility] [address] [place], [address] Potassium [Moles/Vol] 4.5 mmol/L Normal 3.5-5.1 [facility] Comment on above: Order Comment: Order Date: 09/25/23 Order Info: 0786- - CMP Order Info: [id number] - LIPID Performed By: #### L 500.4050, L500.4100 #### [facility] [address] [place], [address] Sodium [Moles/Vol] 139 mmol/L Normal 136-145 [facility] Comment on above: Order Comment: Order Date: 09/25/23 Order Info: 0786-1 - CMP Order Info: [id number] - LIPID Performed By: #### L 500.4050, L500.4100 #### [facility] [address] [place], [address] T PROT 6.6 g/dL Normal 6.4-8.2 [facility] Comment on above: Order Comment: Order Date: 09/25/23 Order Info: 0786-1 - CMP Order Info: [id number] - LIPID Performed By: #### L 500.4050, L500.4100 #### [facility] [address] [place], [address] Urea nitrogen [Mass/Vol] 15 mg/dL Normal 7-18 [facility] Comment on above: Order Comment: Order Date: 09/25/23 Order Info: 0786-1 - CMP Order Info: [id number] - LIPID Performed By: #### L 500.4050, L500.4100 #### [facility] [address] [place], [address] Lipid Profileon 04-05-2024 Cholesterol [Mass/Vol] 150 mg/dL Normal 200 [facility] Comment on above: Order Comment: Order Date: 09/25/23 Order Info: 0786-1 - CMP Order Info: [id number] - LIPID Result Comment: <200 mg/dL Desirable 200-240 mg/dL Borderline >240 mg/dL High Risk Performed By: #### L 500.4050, L500.4100 #### [facility] [address] [place], [address] Cholesterol in HDL [Mass/Vol] 50 mg/dL Normal [facility] Comment on above: Order Comment: Order Date: 09/25/23 Order Info: 0786-1 - CMP Order Info: [id number] - LIPID Result Comment: The drugs N-Acetylcysteine and Metamizole may falsely depress this assay. Reference Range HDL <40 mg/dL Low HDL Cholesterol HDL >or= 60 mg/dL High HDL Cholesterol Performed By: #### L 500.4050, L500.4100 #### [facility] [address] [place], [address] Cholesterol in LDL [Mass/Vol] 67 mg/dL Normal 0-130 [facility] Comment on above: Order Comment: Order Date: 09/25/23 Order Info: 0786-1 - [facility] Order Info: [id number] - LIPID Performed By: #### L 500.4050, L500.4100 #### [facility] [address] [place], [address] Cholesterol in VLDL [Mass/Vol] 33 mg/dL Normal 5-40 [facility] Comment on above: Order Comment: Order Date: 09/25/23 Order Info: [id number]- - [facility] Order Info: [id number] - LIPID Performed By: #### L 500.4050, L500.4100 #### [facility] [address] [place], [address] Triglyceride [Mass/Vol] 164 mg/dL Normal [facility] Comment on above: Order Comment: Order Date: 09/25/23 Order Info: 0786-1 - [facility] Order Info: [id number] - LIPID Result Comment: The drugs N-Acetylcysteine and Metamizole may falsely depress this assay. Serum Triglycerides Reference Interval Normal <150 mg/dL Borderline high 150 - 199 mg/dL High 200 - 499 mg/dL Very High > or = 500 mg/dL Performed By: #### L 500.4050, L500.4100 #### [facility] [address] [place], [address] Basophil percentageon 2021 Chloride [Moles/Vol] 109 mmol/L 98-107 [facility] Work Phone: Cholesterol [Mass/Vol] 161 mg/dL <200 [facility] Work Phone: Comment on above: <200 mg/dL Desirable 200-240 mg/dL Borderline >240 mg/dL High Risk Glucose [Mass/Vol] 101 mg/dL 74-106 [facility] Work Phone: Comment on above: Fasting Glucose resu lt from 100 to 125 mg/dL suggests IMPAIRED HOMEOSTASIS per A.D.A. criteria. Potassium [Moles/Vol] 4.4 mmol/L 3.5-5.1 [facility] Work Phone: Sodium [Moles/Vol] 141 mmol/L 136-145 [facility] Work Phone: Triglyceride [Mass/Vol] 136 mg/dL <199 [facility] Work Phone: Comment on above: The drugs N-Acetylcy steine and Metamizole may falsely depress this assay.Serum Triglycerides Reference Interval Normal <150 mg/dL Borderline high 150 - 199 mg/dL High 200 - 499 mg/dL Very High > or = 500 mg/dL Laboratory - Chemistry and C hemistry - challengeon 05-20-2022 CO2 [Moles/Vol] 29.0 mmol/L 21.0-32.0 [facility] Work Phone: Urea nitrogen/Creatinine [Mass ratio] 21.6 mg/mg 10- [facility] Work Phone: No Panel Informationon 05-20 Estimated GFR (MDRD) Amer 96 mL/min >60 [facility] Work Phone: Comment on above: GFR Calc Estimated GFR (MDRD) Non-Af Amer 79 mL/min >60 [facility] Work Phone: Comment on above: Non- GFR Calc Thyroid Stimulating Hormone (TSH) 2.63 uIU/mL 0.358-3.74 [facility] Work Phone: Serum or plasma calcium lamonte urement (mass/volume)on 05-20-2022 Calcium [Mass/Vol] 8.9 mg/dL 8.5-10.1 [facility] Work Phone: Serum or plasma cholesterol in HDL measurement (mass/volume)on 05-20-2022 Cholesterol in HDL [Mass/Vol] 49 mg/dL >40 [facility] Work Phone: Comment on above: The drugs N-Acetylcy steine and Metamizole may falsely depress this assay. Reference Range HDL <40 mg/dL Low HDL Cholesterol HDL >or= 60 mg/dL High HDL Cholesterol Serum or plasma cholesterol in VLDL measurement (mass/volume)on 05-20-2022 Cholesterol in VLDL [Mass/Vol] 27 mg/dL 5-40 [facility] Work Phone: Serum or plasma creatinine m easurement (mass/volume)on 05-20-2022 Creatinine [Mass/Vol] 0.79 mg/dL 0.55-1.02 [facility] Work Phone: Comment on above: The validity of the calculated GFR & GFRAA in patients over 70 years has not been determined. Clinical correlation is essential. Serum or plasma low density lipoprotein (LDL) cholesterol measurement (mass/volume)on 05-20-2022 Cholesterol in LDL [Mass/Vol] 85 mg/dL 0-130 [facility] Work Phone: Serum or plasma urea nitroge n measurement (mass/volume)on 05-20-2022 Urea nitrogen [Mass/Vol] 17 mg/dL 7-18 [facility] Work Phone: Thin prep Papanicolaou smear with manual screeningon 05-20-2022 Thin prep Papanicolaou smear with manual screening 3 5-15 [facility] Work Phone: Basophil percentageon 2021 Bilirubin [Mass/Vol] 1.10 mg/dL 0.20-1.00 [facility] Work Phone: Comment on above: For patients on eltr ombopag therapy, use of Dimension [place] TBIL is not recommended. Chloride [Moles/Vol] 109 mmol/L 98-107 [facility] Work Phone: Cholesterol [Mass/Vol] 154 mg/dL <200 [facility] Work Phone: Comment on above: <200 mg/dL Desirable 200-240 mg/dL Borderline >240 mg/dL High Risk Glucose [Mass/Vol] 99 mg/dL 74-106 [facility] Work Phone: Potassium [Moles/Vol] 4.3 mmol/L 3.5-5.1 [facility] Work Phone: Protein [Mass/Vol] 6.9 g/dL 6.4-8.2 [facility] Work Phone: Sodium [Moles/Vol] 139 mmol/L 136-145 [facility] Work Phone: Triglyceride [Mass/Vol] 114 mg/dL <199 [facility] Work Phone: Comment on above: The drugs N-Acetylcy steine and Metamizole may falsely depress this assay.Serum Triglycerides Reference Interval Normal <150 mg/dL Borderline high 150 - 199 mg/dL High 200 - 499 mg/dL Very High > or = 500 mg/dL Laboratory - Chemistry and C hemistry - challengeon 12-10-2021 ALP [Catalytic activity/Vol] 136 U/L 45-117 [facility] Work Phone: ALT [Catalytic activity/Vol] 31 U/L 13-56 [facility] Work Phone: CO2 [Moles/Vol] 27.0 mmol/L 21.0-32.0 [facility] Work Phone: Globulin (S) [Mass/Vol] 3.5 g/dL 2.2-4.2 [facility] Work Phone: Urea nitrogen/Creatinine [Mass ratio] 19.5 mg/mg 10-20 [facility] Work Phone: No Panel Informationon 12-10 Estimated GFR (MDRD) Amer 91 mL/min >60 [facility] Work Phone: Comment on above: GFR Calc Estimated GFR (MDRD) Non-Af Amer 75 mL/min >60 [facility] Work Phone: Comment on above: Non- GFR Calc Serum or plasma albumin lamonte urement (mass/volume)on 12-10-2021 Albumin [Mass/Vol] 3.4 g/dL 3.2-5.0 [facility] Work Phone: Serum or plasma albumin/glob ulin mass ratioon 12-10-2021 Albumin/Globulin [Mass ratio] 1.0 {ratio} 0.9-2.4 [facility] Work Phone: Serum or plasma calcium lamonte urement (mass/volume)on 12-10-2021 Calcium [Mass/Vol] 9.0 mg/dL 8.5-10.1 [facility] Work Phone: Serum or plasma cholesterol in HDL measurement (mass/volume)on 12-10-2021 Cholesterol in HDL [Mass/Vol] 52 mg/dL >40 [facility] Work Phone: Comment on above: The drugs N-Acetylcy steine and Metamizole may falsely depress this assay. Reference Range HDL <40 mg/dL Low HDL Cholesterol HDL >or= 60 mg/dL High HDL Cholesterol Serum or plasma cholesterol in VLDL measurement (mass/volume)on 12-10-2021 Cholesterol in VLDL [Mass/Vol] 23 mg/dL 5-40 [facility] Work Phone: Serum or plasma creatinine m easurement (mass/volume)on 12-10-2021 Creatinine [Mass/Vol] 0.82 mg/dL 0.55-1.02 [facility] Work Phone: Comment on above: The validity of the calculated GFR & GFRAA in patients over 70 years has not been determined. Clinical correlation is essential. Serum or plasma low density lipoprotein (LDL) cholesterol measurement (mass/volume)on 12-10-2021 Cholesterol in LDL [Mass/Vol] 79 mg/dL 0-130 [facility] Work Phone: Serum or plasma urea nitroge n measurement (mass/volume)on 12-10-2021 Urea nitrogen [Mass/Vol] 16 mg/dL 7-18 [facility] Work Phone: Thin prep Papanicolaou smear with manual screeningon 12-10-2021 Thin prep Papanicolaou smear with manual screening 26 U/L 15-37 [facility] Work Phone: Thin prep Papanicolaou smear with manual screening 3 5-15 [facility] Work Phone: CT CARDIAC SCORINGon 021 CT CARDIAC SCORING Patient Name: FREDIJanuary STUDY: CT CARDIAC SCORING; 10/28/2020 2:51 pm INDICATION: Family history of ischemic heart disease and other diseases of the circulatory system. COMPARISON: None. ACCESSION NUMBER(S): [id number] ORDERING CLINICIAN: LUIS LU TECHNIQUE: Using prospective ECG gating, CT scan of the coronary arteries was performed without intravenous contrast. Coronary calcium scoring was performed according to the method of Agatston. FINDINGS: The score and distribution of calcium in the coronary arteries is as follows: LM 0, LAD 273.59, 17 LCx 0.99, 1 RCA 966.99, 45 Total 1241.57 The visualized ascending thoracic aorta measures 3.4 cm in diameter. The heart is normal in size. No pericardial effusion is present. Focal calcification aortic root noted. No gross evidence of mediastinal or hilar lymphadenopathy or masses is identified. The visualized segments of the lungs are normally expanded. A 4.7 mm noncalcified pulmonary nodule is seen in right lower lobe (image 25/55). The main pulmonary artery, right and left pulmonary artery are normal in size. The visualized subdiaphragmatic structures appear intact. IMPRESSION: 1. Extremely elevated coronary artery calcium score of 1241.57*. (Follow-up recommendations according to the Fleischner Society Criteria. Gerald Goodman al., Guidelines for management of incidental pulmonary nodules detected on CT images: From the Fleischner Society 2017, Radiology. 2017 Bang;284 (1):228-243.) 2. A 4.7 mm noncalcified pulmonary nodule is seen in right lower lobe (image 25/55). Follow-up recommended as per Fleischner society criteria. *Coronary Artery Agatston score Score risk Very low 1-99 Mildly increased 100-299 Moderately increased >300 Moderate to severely increased >800 Siva et al. JCCT 2016 (http://dx.doi.org/10. 1016/j.jcct.2016.11.00 3) GRAY 10-Year CHD Risk with Coronary Artery Calcification can be calculated using link below https://www.gray-nhlbi .org/MESACHDRisk/MesaR iskScore/RiskScore.asp x Lashawn salas al. JACC 2015 (http://dx.doi.org/10. 1016/j.j acc.2015.08.035) *Follow-up recommendations according to the Fleischner Society Criteria (Gerald Dcmikael et al., Guidelines for management of incidental pulmonary nodules detected on CT images: From the Fleischner Society 2017, DOI: http://dx.doi.org/10.1 148/radiol.0815496375. ) Dimensions are average of long and short axis, rounded to the nearest millimeter. Consider all relevant risk factors. SOLID NODULES: SINGLE NODULE: Low Risk: < 6 mm No routine follow-up 6-[address] at 6-12 months, then consider CT at 18-24 months > [address] at 3 months, PET/CT, or tissue sampling Nodules <6 mm do not require routine follow-up, but certain patients at high risk with suspicious nodule morphology, upper lobe location, or both may warrant 12-month follow-up (recommendation 1A). High risk: < [address] at 12 months 6-[address] at 6-12 months, then CT at 18-24 months > [address] at 3 months, PET/CT, or tissue sampling Nodules < 6 mm do not require routine follow-up, but certain patients at high risk with suspicious nodule morphology, upper lobe location, or both may warrant 12-month follow-up (recommendation 1A). MULTIPLE NODULES: Low risk: < 6 mm No routine follow-up 6-[address] at 3-6 months, then consider CT at 18-24 months > [address] at 3-6 months, then consider CT at 18-24 months Use most suspicious nodule as guide to management. Follow-up intervals may vary according to size and risk (recommendation 2A). High risk: < [address] at 12 months 6-[address] at 3-6 months, then at 18-24 months > [address] at 3-6 months, then at 18-24 months Use most suspicious nodule as guide to management. Follow-up intervals may vary according to size and risk (recommendation 2A). Electronically signed by: KEYSHAWN AMES MD [facility] Vital Signs Date Time Vital Sign Value Performing Clinician Marion brambila 03-06-2022 10:49-0400 Body temperature 97.7 [degF] DR CARMINE PEREZ MD [facility] 03-06-2022 10:49-0400 Diastolic blood pressure 78 mm[Hg] DR CARMINE PEREZ MD [facility] 03-06-2022 10:49-0400 Heart rate 92 /min DR CARMINE PEREZ MD [facility] 03-06-2022 10:49-0400 Respiratory rate 17 /min DR CARMINE PEREZ MD [facility] 03-06-2022 10:49-0400 Systolic blood pressure 148 mm[Hg] DR CARMINE PEREZ MD [facility] 03-06-2022 10:45-0400 Diastolic Blood Pressure NBP [address] CARMINE PEREZ MD [facility] 03-06-2022 10:45-0400 Heart rate 91 /min DR CARMINE PEREZ MD [facility] 03-06-2022 10:45-0400 Respiratory rate 21 /min DR CARMINE PEREZ MD [facility] 03-06-2022 10:45-0400 Systolic Blood Pressure NBP [address] CARMINE PEREZ MD [facility] 03-06-2022 10:34-0400 Diastolic Blood Pressure NBP [address] CARMINE PEREZ MD [facility] 03-06-2022 10:34-0400 Heart rate 94 /min DR CARMINE PEREZ MD [facility] 03-06-2022 10:34-0400 Respiratory rate 18 /min DR CARMINE PEREZ MD [facility] 03-06-2022 10:34-0400 Systolic Blood Pressure NBP [address] CARMINE PEREZ MD [facility] 03-06-2022 10:30-0400 Heart rate 91 /min DR CARMINE PEREZ MD [facility] 03-06-2022 10:26-0400 Diastolic Blood Pressure NBP [address] CARMINE PEREZ MD [facility] 03-06-2022 10:26-0400 Systolic Blood Pressure NBP [address] CARMINE PEREZ MD [facility] 03-06-2022 10:15-0400 Body height [address] CARMINE PEREZ MD [facility] 03-06-2022 09:51-0400 Body height [address] CARMINE PEREZ MD [facility] 03-06-2022 09:51-0400 Body temperature 96.08 [degF] DR CARMINE PEREZ MD [facility] 03-06-2022 09:51-0400 Body weight 96.[address] CARMINE EPREZ MD [facility] 03-06-2022 09:51-0400 Diastolic blood pressure 77 mm[Hg] DR CARMINE PEREZ MD [facility] 03-06-2022 09:51-0400 Heart rate 96 /min DR CARMINE PEREZ MD [facility] 03-06-2022 09:51-0400 Systolic blood pressure 151 mm[Hg] DR CARMINE PEREZ MD [facility] Encounters Encounter Date Encounter Type Care Provider Facility Start: 10-20-2024 ambulatory Luis Lu Marion lity:[facility] Start: 10-20-2024 Non-patient / Non-visit Dr. Serenity Noguera MD -[facility] Start: 10-20-2024 End: 10-20-[address] Luis Lu MD Work Phone: [facility] Work Phone: Start: 10-20-2024 End: 10-20-[address] Luis Lu MD -Cardiovascular Services Work Phone: Start: 10-20-2024 End: 10-20-2024 ambulatory Luis Lu Facility:[facility] Start: 10-14-2024 End: 10-14-[address] Luis Lu MD Work Phone: [facility] Work Phone: Start: 10-14-2024 End: 10-14-[address] Luis Lu MD -Outpatient Breast Imaging Work Phone: Start: 10-14-2024 End: 10-14-2024 ambulatory Luis Lu Facility:[facility] Start: 04-05-2024 End: 04-05-2024 ambulatory Luis Lu Facility:[facility] Start: 12-11-2023 ambulatory [facility] Faci lity:[facility] Start: 10-02-2023 Patient encounter procedure [facility]Laboratory, Specimen Work Phone: Start: 10-01-2023 End: 10-01-2023 ambulatory [facility] Work Phone: Start: 10-01-2023 End: 10-01-2023 Patient encounter procedure [facility]Outpatient Breast Imaging Work Phone: Start: 05-22-2022 Patient encounter procedure [facility] Start: 05-20-2022 End: 05-20-2022 ambulatory [facility] Work Phone: Start: 05-20-2022 End: 05-20-2022 Patient encounter procedure [facility] Start: 03-06-2022 End: 03-06-[address] CARMINE PEREZ MD. Facility:[facility] Start: 03-06-2022 End: 03-06-[address] CARMINE PEREZ MD [facility] Start: 01-30-2022 End: 01-30-2022 Patient encounter procedure [facility]Cat Scan, [facility] Start: 12-10-2021 End: 12-10-2021 Patient encounter procedure [facility]Labor[facility] Start: 12-08-2021 End: 12-08-2021 Patient encounter procedure [facility]-Radiology, [place] Procedures Date Procedure Procedure Detail Performing Clinician Start: 10-20-2024 Radionuclide imaging of perfusion of myocardium under exercise stress Dr. Luis Lu MD Work Phone: Start: 10-14-2024 Screening mammography Jhoan Lu MD Work Phone: Start: 10-01-2023 Screening mammography Start: 05-22-2022 Screening mammography Start: 03-06-[address] CARMINE PEREZ MD Start: 01-30-2022 CT of chest without contrast Start: 12-08-2021 X-ray of lumbosacral spine Plan of Treatment Date Care Activity Detail Author Path report.final Dx Spec [facility] Payers Date Payer Category Payer Private Health Insurance [id number] 2023 Self-pay [id number] 2023 Unknown [id number] 2022 Unknown [id number] 2022 Unknown [id number] 1960 Unknown [id number] Private Health Insurance [facility] [id number] Unknown [id number] Unknown [facility] [id number] Unknown [employer] [id number] Unknown [id number] 63 Unknown [id number] 62 Unknown [id number] 62 Unknown [id number] 62 Unknown [id number] 62 Social History Date Type Detail [facility] Work Phone: Start: 1960 Sex Assigned At Female A [facility] Tobacco smoking status No Smokin g Status Entered [facility] Work Phone: Start: 10-24-2024 End: 10-28-2024 Sex Female (finding) [facility] Functional Status Date Assessment Result Facility 03-06-2022 Functional Status Activity Statu s ADL Up to bathroom [facility] 03-06-2022 Functional Status Maintained [facility] Mental Status Date Assessment Result Facility 03-06-2022 Mental Status Oriented x 4 [facility] Evaluation + Plan note 03-06-2022 Note Date & Type Note Facility 03-06-2022 Evaluation + Plan note Extrac breanne from: Title:Clinical Document Author:CARMINE PEREZ Date:03/06/22 [facility] AD[facility] H[facility] AN D PHYSICIAL CHIEF COMPLAINT: HISTORY OF PRESENT ILLNESS: REVIEW OF SYSTEMS: ACTIVE PROBLEMS: (1) HTN (hypertension) ([id number]) MEDICATIONS: Active Inpt Meds: None Active PRN Meds: None One Time Meds: None Active IV Meds: Lactated Ringers Infusion 1,000 mL Start: 03/06/22 9:46:00 EDT, Rate: 50 mL/hr, 03/06/22 9:46:00 EDT ALLERGIES: (1) NKA FAMILY HISTORY: SOCIAL HISTORY: PHYSICAL EXAM: VITALS: NsxaksIqtwWLWmwkkESWoI5ZRK1PgjjMm(kg) 03/06 10:05--107/59--------03/06 96.9 03/06 09:5135.6151/[id number] 24 Hr Tmax: 35.6 at 03/06 09:51 [...] changes to the H&P unless noted below. [facility] Hospital Discharge instructions 03-06-2022 Note Date & [...] overweight. Not getting enough exercise. Smoking. Taking fyqi-vhy-hkmpbdm pain medicines, like aspirin and ibuprofen. Having [...] health care provider or your diet and nutritionalist (dietitian). ?Take a fiber supplement or probiotic, if your health care provider approves. Take zbsq-see-ekwtgwz and prescription medicines only as told by [...] 04/26/2005 Document Revised: 07/12/2018 Document Reviewed: 06/18/2017 [employer] Patient Education 2020 [employer]. 03/06/2022 11:08:30 Monitored Anesthesia Care, Care After [...] before eating solid foods. General instructions Take idso-uih-fyahvas and prescription medicines only as told by [...] 11/19/2016 Document Revised: 10/28/2018 Document Reviewed: 11/19/2016 [employer] Patient Education 2020 [employer]. 03/06/2022 11:08:13 Colonoscopy, Adult, Care After Colonoscopy, [...] a slower pace than normal. ?Eat soft, tomi-ce-leheme foods. Take pwar-lae-feyjxgh or prescription medicines only as told by [...] 03/13/2005 Document Revised: 05/22/2018 Document Reviewed: 10/10/2016 [employer] Patient Education 2020 [employer]. 03/06/2022 10:54:22 Monitored Anesthesia Care, Care After [...] before eating solid foods. General instructions Take hfrl-zaa-hzwelwn and prescription medicines only as told by [...] 11/19/2016 Document Revised: 10/28/2018 Document Reviewed: 11/19/2016 [employer] Patient Education 2020 [employer]. 03/06/2022 10:54:11 Colonoscopy, Adult, Care After Colonoscopy, [...] a slower pace than normal. ?Eat soft, fzei-td-gbwkfd foods. Take zord-jsw-ibipntb or prescription medicines only as told by [...] 03/13/2005 Document Revised: 05/22/2018 Document Reviewed: 10/10/2016 [employer] Patient Education 2020 [employer]. Follow Up Care 02/02/2022 11:14:58 With:CARMINE PEREZ Address: [address] [address] [phone] Business (1) When: only if needed Comments:You will need another colonoscopy in 10 years [facility] Summary of episode note 03-06-2022 Note Date & Type Note Facility 03-06-2022 Summary of episode note Discharge Instructions Thank you for allowing [facility] to assist you with your healthcare needs. The following is important discharge information regarding your hospital visit. Your Care Team LUIS LU MD What to do next Follow Up Appointments Follow Up with CARMINE PEREZ When Only if needed Why: You will need another colonoscopy in 10 years Where: [address] [place] [address] [phone] [employer] (1) The Following Activity and Diet Have [...] overweight. Not getting enough exercise. Smoking. Taking nhww-guh-qdjqgcc pain medicines, like aspirin and ibuprofen. Having [...] health care provider or your diet and nutritionalist (dietitian). ? Take a fiber supplement or probiotic, if your health care provider approves. Take mxjj-irn-exjhrna and prescription medicines only as told by [...] 04/26/2005 Document Revised: 07/12/2018 Document Reviewed: 06/18/2017 [employer] Patient Education 2020 [employer]. Monitored Anesthesia Care, Care After These instructions [...] before eating solid foods. General instructions Take hbya-iem-ccpzbtg and prescription medicines only as told by [...] 11/19/2016 Document Revised: 10/28/2018 Document Reviewed: 11/19/2016 [employer] Patient Education 2020 [employer]. Colonoscopy, Adult, Care After This sheet gives [...] slower pace than normal. ? Eat soft, dcze-rs-gslcil foods. Take dyzn-jop-gntkuhl or prescription medicines only as told by [...] 03/13/2005 Document Revised: 05/22/2018 Document Reviewed: 10/10/2016 [employer] Patient Education 2020 [employer]. Monitored Anesthesia Care, Care After These instructions [...] before eating solid foods. General instructions Take ncpn-tvc-mdyyojl and prescription medicines only as told by [...] 11/19/2016 Document Revised: 10/28/2018 Document Reviewed: 11/19/2016 [employer] Patient Education 2020 [employer] Colonoscopy, Adult, Care After This sheet gives [...] slower pace than normal. ? Eat soft, rtob-nj-gkejdz foods. Take jbit-vpn-stywmpu or prescription medicines only as told by [...] 03/13/2005 Document Revised: 05/22/2018 Document Reviewed: 10/10/2016 [employer] Patient Education 2020 [employer] Additional Information VACCINATE! IT SAVES LIVES! Members of the community who have not yet received the COVID-19 vaccine and would like to receive it can visit one of [facility] vaccine clinics. There are many vaccine clinic locations within the [facility]. For locations and available times, please visit https://gettheshot.coronavirus.[place].gov/. It is important to note that some COVID mobile vaccine clinics are held outdoors and may be canceled in rainy or stormy conditions. To learn more about pediatric vaccinations (ages 5-11), we invite you to visit the [facility] webpage. https://www.[facility].org/pag es/1375-Rqdgf-Vlmwixhefbe-Frequent qv-Cehvg-Frkwgrhyr.html To learn more about the COVID-19 vaccine, we invite you to visit the [facility] website for a list of frequently asked questions. [email or web address] [email or web address]-[email or web address]-Mkjyjeiy/kpdmb-Qetkgbu-Kwllb ently_Asked-Questions.pdf [facility] Patient Portal Access Instructions: Stay connected with your healthcare team and access your personal medical information anytime with the [facility] Patient Portal.If you would like a full copy of your medical records, please contact the [facility] Medical Records Department, Sunday through Sunday between 8a.m. and 4:30p.m. Please follow the directions below to access the portal: 1.Access the email account you provided upon registration to the [facility].2.Look for an invitation email from [facility].3.Open the email and access the invitation link: Accept Invitation to [facility]4.Fill in the required pettit to create your account. Sign into [email or web address] with your username and password that you [...] you will allow to register on the [facility] Patient Portal for access to your information. You can also access the [facility] Patient Portal on the [employer] zenobia. Simply click on Health Records under Health Data and then click on the [facility] logo. HOW TO SAFELY DISPOSE OF PRESCRIPTION [...] Call your local pharmacy or go to http://The Art Commission.Tu Otro Super/0X9Xs7u to find one close to you.3.Make use of household items: Use cat litter or old coffee grounds to dispose medications if other options are not available. Mix your drugs with these household products, seal them in an airtight container and throw it into the garbage. Call [facility]: [phone] to be sure your drugs can be [...] aware that I should contact my doctor. 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 Signature: Date/Time: Relationship to Patient: ___ Witness Name/Signature: Date/Time: [facility] Anesthesiology Consult note 03-06-2022 Note Date & [...] by ARELIS RODRIGUEZ on 03/06/2022 11:01 AM [facility] Clinical Note 03-06-2022 Note Date & Type Note Facility 03-06-2022 Note [facility] H[facility] AND PHYSICIAL CHIEF COMPLAINT: HISTORY OF PRESENT ILLNESS: REVIEW OF SYSTEMS: ACTIVE PROBLEMS: (1) HTN (hypertension) ([id number]) MEDICATIONS: Active Inpt Meds: None Active PRN Meds: None One Time Meds: None Active IV Meds: Lactated Ringers Infusion 1,000 mL Start: 03/06/22 9:46:00 EDT, Rate: 50 mL/hr, 03/06/22 9:46:00 EDT ALLERGIES: (1) NKA FAMILY HISTORY: SOCIAL HISTORY: PHYSICAL EXAM: VITALS: TkcwslZqxgHEYwvmtUFUeN5SFK9KqqrVv(k g) 03/06 10:05--107/59--------03/06 96.9 03/06 09:5135.6151/[id number] 24 Hr Tmax: 35.6 at 03/06 09:51 [...] H&P unless noted below. Digitally Signed by CARMINE PEREZ MD on 03/06/2022 10:21 AM [facility] Anesthesiology Consult note 03-06-2022 Note Date & Type Note Facility 03-06-2022 Anesthesiology Consult note Patient: JED RAI Age: 61 years Sex: Female : 1960 Associated Diagnoses: None Author: ARLEIS RODRIGUEZ Preoperative Information Time of last food [...] artery disease Mother Father Procedure history: Colonoscopy ([id number]) on 03/06/2022 at 61 Years. Social History [...] qualifying data available . Assessment and Plan [place] Society of Anesthesiologists (ASA) physical status classification: Class II. Anesthetic Preoperative Plan Premedication: None. Anesthetic technique: MAC. Induction: intravenously. Postoperative pain management: Per surgeon. Risks discussed: nausea, vomiting, headache, sore throat, dental injury, hypotension, allergic reaction, serious complications. Digitally Signed by ARELIS RODRIGUEZ on 03/06/2022 10:02 AM [facility] Evaluation note Note Date & Type Note Facility Evaluation note No assessment information availa ble [facility] Work Phone: Hospital course Narrative Note Date & Type Note Facility Hospital course Narrative No data available for this section [facility] Reason for referral (narrative) Note Date & Type Note Facility Reason for referral (narrative) No reason for referral information available [facility] Work Phone: Summary Purpose Family History No Family History Records FoundNo Family History Records FoundNo Family History Records Found Advance Directives No Advanced Directives Records FoundNo Advanced Directives Records FoundNo Advanced Directives Records Found Chief Complaint and Reason for Visit Chief Complaint E ORDER Chief Complaint E ORDER PULMONARY NODULE Chief Complaint PULMONARY NODULE EORDERS SCREENING Chief Complaint SCREENING Chief Complaint Admit Date SCREENING October 14, 2024 4:00 pm CHEST PAIN October 20, 2024 6:2 8am CHEST PAIN October 20, 2024 12: 19pm Additional Source Comments INFORMATION SOURCE (unrecogn ized section and content) DATE CREATED AUTHOR 10/31/2020 [facility] DATE CREATED AUTHOR AUTHOR'S ORGANIZ ATION 06/09/2022 [facility] ([place]) DATE CREATED AUTHOR AUTHOR'S ORGANIZ ATION 10/31/2024 [facility] Goals (unrecognized section and content) Goals may be documented in a n alternate sectionGoals may be documented in an alternate sectionGoals may be documented in an alternate section No data available for this sectionGoals may be documented in an alternate sectionGoals may be documented in an alternate sectionGoals may be documented in an alternate sectionGoals may be documented in an alternate section Care Team (unrecognized sect ion and content) Care Team Personnel Name: LUIS LU MD Member Role: Primary Care Physician Address: Address: [address] [place] [address]- Care Team Related Persons Name: MATTHIEU RAI Address: Home [address] [place] [address] Care Teams (unrecognized sec tion and content) Team Status: Active Member Role Status Dates No Primary Care Physician Family Provider Active Dr. Butch Lu MD Primary Care Provider Activ e Team Status: Inactive Member Role Status Dates Dr. Butch Lu MD Primary Care Provider, Attending Provider, Referring Provider Active Team Status: Active Member Role Status Dates Dr. Butch Lu MD Primary Care Provider Activ e Catina Cunha NP-C Attending Provider, Referring Pr lalison Active Team Status: Active Member Role Status Dates Dr. Luis Lu MD Primary Care Provider Acti ve Team Status: Inactive Member Role Status Dates Dr. Luis Lu MD Primary Care Provider Acti ve Start: October 14, 2024 End: October 14, 2024 Dr. Luis Lu MD Attending Provider Active Start: October 14, 2024 End: October 14, 2024 Dr. Luis Lu MD Referring Provider Active Start: October 14, 2024 End: October 14, 2024 Team Status: Active Member Role Status Dates Dr. Luis Lu MD Primary Care Provider Acti ve Start: October 20, 2024 Dr. Luis Lu MD Attending Provider Active Start: October 20, 2024 Dr. Luis Lu MD Referring Provider Active Start: October 20, 2024 Team Status: Active Member Role Status Dates Dr. Luis Lu MD Primary Care Provider Acti ve Start: October 20, 2024 Dr. Luis Lu MD Referring Provider Active Start: October 20, 2024 Dr. Luis Lu MD Other Provider Active Start: October 20, 2024 Dr. Lavern Noguera MD Attending Provider Activ e Start: October 20, 2024 Team Status: Inactive Member Role Status Dates Dr. Luis Lu MD Primary Care Provider Acti ve Start: October 20, 2024 End: October 20, 2024 Dr. Luis Lu MD Attending Provider Active Start: October 20, 2024 End: October 20, 2024 Dr. Luis Lu MD Referring Provider Active Start: October 20, 2024 End: October 20, 2024 FOR RECORDS PERTAINING TO PATIENTS WHO ARE [...] BE BASED ON THE PRIMARY CLINICAL RECORDS. [employer] provides no warranty or guarantee of the accuracy or completeness of information in this document.
[2025-03-21 08:48] LABS: Cholesterol 165 mg/dL (<=200); Low Density Lipoprotein Calc. 82 mg/dL; Triglycerides 153 mg/dL; Very Low Density Lipoprotein 31 mg/dL (5-40); cholesterol:hdl ratio screen 3.16
[2025-03-21 08:54] LABS: AST(SGOT) 24 U/L (<=31); Alanine Aminotransfer ALT/SGPT 23 U/L (<=34); Albumin, Serum 3.9 g/dL (3.4-4.8); Alkaline Phosphatase 145 U/L (35-104); Anion Gap 10 (5-15); BUN 14 mg/dL (4-19); BUN/Creat Ratio 15.2 RATIO (10-20); Calcium,Total 9.2 mg/dL (7.6-11.0); Carbon Dioxide 25.3 mmol/L (21.0-32.0); Chloride 105 mmol/L (98-108); Globulin 2.5 g/dL (2.2-4.2); Glucose 103 mg/dL (70-99); Potassium 4.4 mmol/L (3.3-5.1)
== END | disposition home or self-care (01) ==
LOC: LAB 07:51
PROVIDERS: PCP Family Medicine; Referring Provider Family Medicine; Visit Provider Family Medicine
DX: I10 Essential (primary) hypertension (principal)
CPT/HCPCS: 36415; 80053; 80061